=== PATIENT | male | born 1960 | race Hispanic/Latino ===

== ENCOUNTER 2021-02-17 11:27 | Inpatient (IN) | payer OTHER ==
[~2021-02-17] VITALS: Ht 160 cm; Wt 111.1 kg
[2021-02-17 11:28] VITALS: BP 124/72
[2021-02-17 13:13] LABS: BASOPHILS % (AUTO) 0.4 % (0.0-5.0); EOSINOPHILS % (AUTO) 0.6 % (0.0-8.0); HEMATOCRIT 36.7 % (42-54); MEAN CORPUSCULAR HEMOGLOBIN 26.4 pg (27.0-33.0); MEAN CORPUSCULAR HGB CONC 31.3 g/dL (32.0-36.0); MEAN CORPUSCULAR VOLUME 84.2 fL (79-99); MONOCYTES % (AUTO) 5.9 % (3.0-13.0); NEUTROPHILS % (AUTO) 87.1 % (40.0-77.0); PLATELET COUNT (AUTO) 436 K/uL (130-400); RED BLOOD CELL COUNT(AUTO) 4.36 MIL/uL (4.50-6.20)
[2021-02-17 13:31] LABS: CREATININE 0.7 mg/dL (0.5-1.5); POTASSIUM 4.5 mmol/L (3.5-5.1)
[2021-02-17 13:33] LABS: ALBUMIN 2.1 g/dL (3.5-5.0); BILIRUBIN,TOTAL 0.6 mg/dL (0.2-1.0); TOTAL PROTEIN, SERUM 8.7 g/dL (6.0-8.3)
[2021-02-17] MEDS ORDERED: HYDRALAZINE 20MG/ML VIAL IV PRN (15:00)
[2021-02-17] MEDS ORDERED: DIPHENHYDRAMINE HCL 25 MG CAPSULE PO PRN (15:00)
[2021-02-17] MEDS ORDERED: VANCOMYCIN PROTOCOL PER PHARMACY IV SCH (15:00)
[2021-02-17] MEDS ORDERED: COMPOUND IV REFRIGERATED 1 EACH IVSOLN MISC PRN (15:00)
[2021-02-17] MEDS ORDERED: NITROGLYCERIN 0.4 MG SL TAB SL PRN (15:00)
[2021-02-17] MEDS ORDERED: MAG/ALUM/SIMETH 30 ML UDCUP PO PRN (15:00)
[2021-02-17] MEDS ORDERED: ONDANSETRON 4MG INJ IV PRN (15:00)
[2021-02-17] MEDS ORDERED: VANCOMYCIN 2GM/500ML NS IV ONE ×2 (15:00)
[2021-02-17] MEDS ORDERED: ACETAMINOPHEN 325 MG TAB PO PRN (15:00)
[2021-02-17] MEDS ORDERED: ACETAMINOPHEN WITH CODEINE 1 TAB TAB PO PRN (15:00)
[2021-02-17] MEDS ORDERED: ISOS30TA92 PO (15:40)
[2021-02-17] MEDS: CEFEPIME HCL 2 GM VIAL IVP SCH (16:26)
[2021-02-17] MEDS: 0.9%NACL 1000ML 1,000 ML IV SCH (16:50)
[2021-02-17 17:24] VITALS: BP 128/71
[2021-02-17] MEDS: METRONIDAZOLE 500MG/100ML BAG 100 ML IVPB SCH (18:00)
[2021-02-17 18:47] VITALS: BP 135/70
[2021-02-17] MEDS ORDERED: FAMOTIDINE 20MG VIAL IV SCH (21:00)
[2021-02-17] MEDS: MORPHINE 4 MG SYG IV PRN (22:10)
[2021-02-17] MEDS: METOPROLOL TARTRATE 50 MG TAB PO SCH (22:10)
[2021-02-17 22:27] VITALS: BP 122/77
[2021-02-17 22:40] VITALS: BP 153/80
[2021-02-18] VITALS (18 sets, daily range): BP systolic 101–129; BP diastolic 48–82
[2021-02-18] MEDS: METRONIDAZOLE 500MG/100ML BAG 100 ML IVPB SCH ×4 (02:49→18:00)
[2021-02-18] MEDS: CEFEPIME HCL 2 GM VIAL IVP SCH ×3 (02:50→15:55)
[2021-02-18] MEDS: MORPHINE 4 MG SYG IV PRN (04:32)
[2021-02-18] MEDS: 0.9%NACL 1000ML 1,000 ML IV SCH ×4 (04:50→21:30)
[2021-02-18] MEDS: VANCOMYCIN 1.5GM/NS 250ML IV SCH ×6 (06:00→21:30)
[2021-02-18 06:19] LABS: BASOPHILS % (AUTO) 0.6 % (0.0-5.0); EOSINOPHILS % (AUTO) 1.8 % (0.0-8.0); HEMATOCRIT 32.3 % (42-54); LYMPHOCYTES % (AUTO) 6.3 % (21.0-51.0); MEAN CORPUSCULAR HEMOGLOBIN 25.7 pg (27.0-33.0); MEAN CORPUSCULAR HGB CONC 30.3 g/dL (32.0-36.0); MEAN CORPUSCULAR VOLUME 84.6 fL (79-99); MONOCYTES % (AUTO) 7.4 % (3.0-13.0); NEUTROPHILS % (AUTO) 82.7 % (40.0-77.0); PLATELET COUNT (AUTO) 435 K/uL (130-400); RED BLOOD CELL COUNT(AUTO) 3.82 MIL/uL (4.50-6.20); RED CELL DISTRIBUTION WIDTH 15.4 % (11.0-15.5); WHITE BLOOD COUNT (AUTO) 10.8 K/uL (4.8-10.8)
[2021-02-18 06:30] LABS: CREATININE 0.7 mg/dL (0.5-1.5); MAGNESIUM 2.2 mg/dL (1.80-2.40); POTASSIUM 4.2 mmol/L (3.5-5.1)
[2021-02-18] MEDS: METOPROLOL TARTRATE 50 MG TAB PO SCH ×2 (10:07→21:00)
[2021-02-18] MEDS: PANTOPRAZOLE 40 MG/VIAL IVP SCH (10:07)
[2021-02-18] MEDS ORDERED: LIDOCAINE PF 100MG/5ML (2%) SYRINGE 5ML ONE (15:03)
[2021-02-18] MEDS ORDERED: PROPOFOL 10 MG/ML 20ML VIAL IV ONE (15:03)
[2021-02-18] MEDS ORDERED: ONDANSETRON 4MG INJ ONE (15:03)
[2021-02-18] MEDS ORDERED: MIDAZOLAM HCL 1 MG/ML 2ML VIAL ONE (15:04)
[2021-02-18] MEDS ORDERED: ROCURONIUM 10MG/1ML SYR 10 MG/ML ML ONE ×2 (15:04→18:14)
[2021-02-18] MEDS ORDERED: FENTANYL CITRATE PF 50 MCG/1 ML 2ML VIAL ONE (15:04)
[2021-02-18] MEDS ORDERED: VANCOMYCIN 1G VIAL ONE ×3 (15:13→19:25)
[2021-02-18] MEDS ORDERED: CEFAZOLIN SODIUM 1 GM VIAL ONE ×2 (15:13→16:07)
[2021-02-18] MEDS ORDERED: VANCOMYCIN 1G/250ML KIT 500 ML IV ONE (20:16)
[2021-02-18] MEDS ORDERED: NEOSTIGMINE 5MG/5ML SYR IV ONE (20:48)
[2021-02-18] MEDS ORDERED: GLYCOPYRROLATE 1 MG/5 ML SYRINGE ONE (20:48)
[2021-02-18] MEDS ORDERED: NOREPINEPHRINE BITARTRATE 1 MG/1 ML ML IV ONE (21:01)
[2021-02-18] MEDS ORDERED: MEPERIDINE-PF 25 MG/ML SYG ONE (21:01)
[2021-02-18] MEDS ORDERED: NALOXONE HCL 0.4 MG/1 ML ML IVP PRN (21:30)
[2021-02-18] MEDS ORDERED: POTASSIUM CHLORIDE 20MEQ/100ML 100 ML IV PRN (21:30)
[2021-02-18] MEDS ORDERED: KETOROLAC 15MG/ML VIAL (15MG/ML) IV PRN (21:30)
[2021-02-18] MEDS: ACETAMINOPHEN 500 MG TABLET PO SCH (21:30)
[2021-02-18] MEDS ORDERED: LIDOCAINE HCL-MPF 1% 2ML VIAL IV PRN (21:30)
[2021-02-18] MEDS ORDERED: KCL 20 MEQ ERTAB PO PRN (21:30)
[2021-02-18] MEDS ORDERED: OXYCODONE HCL 5 MG TAB PO PRN (21:30)
[2021-02-18] MEDS ORDERED: POTASSIUM CHLORIDE 10% ELIXIR 20 MEQ/15 ML UDCUP PO PRN (21:30)
[2021-02-18] MEDS ORDERED: DIPHENHYDRAMINE HCL 25 MG CAPSULE PO PRN (21:30)
[2021-02-18] MEDS ORDERED: DiphenhydrAMINE HCL 50 MG/ML VIAL IVP PRN (21:30)
[2021-02-18] MEDS ORDERED: TRAMADOL HCL 50 MG TABLET PO PRN (21:30)
[2021-02-18] MEDS ORDERED: HYDROMORPHONE PCA 10 MG/50 ML 50 ML IV PRN (21:30)
[2021-02-18] MEDS ORDERED: HYDROMORPHONE 1 MG INJ ONE ×2 (21:41→22:07)
[2021-02-18] MEDS ORDERED: KETOROLAC 30MG VIAL (30MG/ML) ONE (21:51)
[2021-02-19] VITALS (11 sets, daily range): BP systolic 95–146; BP diastolic 52–74
[2021-02-19] MEDS: CEFEPIME HCL 2 GM VIAL IVP SCH ×2 (03:41→14:11)
[2021-02-19] MEDS: METRONIDAZOLE 500MG/100ML BAG 100 ML IVPB SCH ×3 (03:41→17:25)
[2021-02-19] MEDS: ACETAMINOPHEN 500 MG TABLET PO SCH ×3 (04:38→21:46)
[2021-02-19 05:15] LABS: MEAN CORPUSCULAR HEMOGLOBIN 26.1 pg (27.0-33.0); MEAN CORPUSCULAR VOLUME 87.1 fL (79-99); RED BLOOD CELL COUNT(AUTO) 3.33 MIL/uL (4.50-6.20); RED CELL DISTRIBUTION WIDTH 15.4 % (11.0-15.5); WHITE BLOOD COUNT (AUTO) 13.6 K/uL (4.8-10.8)
[2021-02-19 05:29] LABS: CREATININE 0.8 mg/dL (0.5-1.5); POTASSIUM 5.4 mmol/L (3.5-5.1)
[2021-02-19] MEDS: 0.9%NACL 1000ML 1,000 ML IV SCH ×2 (07:00→20:20)
[2021-02-19] MEDS ORDERED: KAYEXALATE 15GM/60ML PO ONE (08:30)
[2021-02-19] MEDS ORDERED: CALCIUM GLUC 1GM VIAL IV SCH (08:30)
[2021-02-19] MEDS ORDERED: CELECOXIB 200 MG CAP PO SCH (09:00)
[2021-02-19] MEDS ORDERED: ENOXAPARIN SODIUM 40 MG/0.4 ML SYRINGE SQ SCH (09:00)
[2021-02-19] MEDS ORDERED: CALCIUM GLUC 1GM VIAL 1 GM in 0.9%NACL 100ML 100 ML IV ONE (09:00)
[2021-02-19] MEDS ORDERED: KAYEXALATE 15GM/60ML ONE (09:55)
[2021-02-19] MEDS: METOPROLOL TARTRATE 50 MG TAB PO SCH ×2 (09:58→21:44)
[2021-02-19] MEDS: TAMSULOSIN HCL 0.4 MG CAP.ER.24H PO SCH (09:58)
[2021-02-19] MEDS: PREGABALIN 25 MG CAP PO SCH ×2 (09:58→21:44)
[2021-02-19] MEDS: PANTOPRAZOLE 40 MG/VIAL IVP SCH (09:59)
[2021-02-19 14:01] LABS: POTASSIUM 4.5 mmol/L (3.5-5.1)
[2021-02-19] MEDS: VANCOMYCIN 1.25GM/NS 250ML IVPB SCH ×2 (21:46)
[2021-02-19] MEDS: GUAIFENESIN-DM 200/20 MG 10 ML PO PRN (21:46)
[2021-02-20] MEDS: 0.9%NACL 1000ML 1,000 ML IV SCH (00:36)
[2021-02-20] MEDS: METRONIDAZOLE 500MG/100ML BAG 100 ML IVPB SCH ×3 (03:41→18:02)
[2021-02-20] MEDS: CEFEPIME HCL 2 GM VIAL IVP SCH ×2 (03:41→18:02)
[2021-02-20 04:04] VITALS: BP 112/58
[2021-02-20] MEDS: ACETAMINOPHEN 500 MG TABLET PO SCH ×3 (05:33→20:38)
[2021-02-20 06:21] LABS: HEMATOCRIT 23.7 % (42-54); MEAN CORPUSCULAR HEMOGLOBIN 25.6 pg (27.0-33.0); MEAN CORPUSCULAR HGB CONC 29.5 g/dL (32.0-36.0); MEAN CORPUSCULAR VOLUME 86.8 fL (79-99); RED BLOOD CELL COUNT(AUTO) 2.73 MIL/uL (4.50-6.20); RED CELL DISTRIBUTION WIDTH 15.5 % (11.0-15.5); WHITE BLOOD COUNT (AUTO) 8.3 K/uL (4.8-10.8)
[2021-02-20 06:49] LABS: CREATININE 0.7 mg/dL (0.5-1.5); POTASSIUM 3.8 mmol/L (3.5-5.1)
[2021-02-20 07:30] VITALS: BP 130/61
[2021-02-20] MEDS: VANCOMYCIN 1.25GM/NS 250ML IVPB SCH ×4 (10:40→20:39)
[2021-02-20] MEDS: PANTOPRAZOLE 40 MG/VIAL IVP SCH (10:40)
[2021-02-20] MEDS: TAMSULOSIN HCL 0.4 MG CAP.ER.24H PO SCH (10:41)
[2021-02-20] MEDS: PREGABALIN 25 MG CAP PO SCH ×2 (10:41→20:39)
[2021-02-20] MEDS: METOPROLOL TARTRATE 50 MG TAB PO SCH ×2 (10:41→20:39)
[2021-02-20] MEDS: CALCIUM CARB 500MG PO PRN (10:47)
[2021-02-20] MEDS: FERROUS FUMARATE 324 MG TABLET PO PRN (10:48)
[2021-02-20 11:00] VITALS: BP 120/72
[2021-02-20 16:00] VITALS: BP 114/70
[2021-02-20 20:00] VITALS: BP 109/70
[2021-02-20] MEDS ORDERED: FUROSEMIDE 20MG VIAL IV ONE (20:30)
[2021-02-20] MEDS: ENOXAPARIN SODIUM 40 MG/0.4 ML SYRINGE SQ SCH (22:14)
[2021-02-20] MEDS: GUAIFENESIN-DM 200/20 MG 10 ML PO PRN (23:09)
[2021-02-21 00:02] VITALS: BP 93/51
[2021-02-21] MEDS: METRONIDAZOLE 500MG/100ML BAG 100 ML IVPB SCH ×3 (01:38→18:23)
[2021-02-21] MEDS: CEFEPIME HCL 2 GM VIAL IVP SCH ×2 (03:11→15:05)
[2021-02-21 04:00] VITALS: BP 110/62
[2021-02-21] MEDS: GUAIFENESIN-DM 200/20 MG 10 ML PO PRN (04:51)
[2021-02-21] MEDS: ACETAMINOPHEN 500 MG TABLET PO SCH ×3 (04:52→20:56)
[2021-02-21 05:02] LABS: MEAN CORPUSCULAR HEMOGLOBIN 26.3 pg (27.0-33.0); MEAN CORPUSCULAR VOLUME 87.7 fL (79-99); RED BLOOD CELL COUNT(AUTO) 2.85 MIL/uL (4.50-6.20); RED CELL DISTRIBUTION WIDTH 15.1 % (11.0-15.5); WHITE BLOOD COUNT (AUTO) 7.1 K/uL (4.8-10.8)
[2021-02-21 05:23] LABS: CREATININE 0.6 mg/dL (0.5-1.5); POTASSIUM 3.6 mmol/L (3.5-5.1)
[2021-02-21 07:48] VITALS: BP 122/73
[2021-02-21] MEDS: METOPROLOL TARTRATE 50 MG TAB PO SCH ×2 (09:35→20:57)
[2021-02-21] MEDS: TAMSULOSIN HCL 0.4 MG CAP.ER.24H PO SCH (09:35)
[2021-02-21] MEDS: PANTOPRAZOLE 40 MG/VIAL IVP SCH (09:35)
[2021-02-21] MEDS: PREGABALIN 25 MG CAP PO SCH ×2 (09:36→20:57)
[2021-02-21] MEDS: ENOXAPARIN SODIUM 40 MG/0.4 ML SYRINGE SQ SCH (09:39)
[2021-02-21] MEDS: FERROUS FUMARATE 324 MG TABLET PO PRN (09:42)
[2021-02-21] MEDS: CALCIUM CARB 500MG PO PRN (09:43)
[2021-02-21] MEDS: VANCOMYCIN 1.5GM/NS 250ML IV SCH ×4 (11:48→21:21)
[2021-02-21 11:51] VITALS: BP 118/64
[2021-02-21] MEDS: OXYCODONE HCL 5 MG TAB PO PRN (11:54)
[2021-02-21 15:45] VITALS: BP 106/57
[2021-02-21 20:00] VITALS: BP 132/63
[2021-02-21] MEDS ORDERED: 0.9% NACL 250ML 250 ML ONE (20:50)
[2021-02-22 00:12] VITALS: BP 126/68
[2021-02-22] MEDS: METRONIDAZOLE 500MG/100ML BAG 100 ML IVPB SCH (02:00)
[2021-02-22] MEDS: CEFEPIME HCL 2 GM VIAL IVP SCH (03:02)
[2021-02-22 04:00] VITALS: BP 125/73
[2021-02-22] MEDS: MORPHINE 4 MG SYG IV PRN (04:39)
[2021-02-22 06:21] LABS: BASOPHILS % (AUTO) 1.4 % (0.0-5.0); HEMATOCRIT 28.6 % (42-54); MEAN CORPUSCULAR HEMOGLOBIN 26.3 pg (27.0-33.0); MEAN CORPUSCULAR HGB CONC 29.7 g/dL (32.0-36.0); MEAN CORPUSCULAR VOLUME 88.5 fL (79-99); MONOCYTES % (AUTO) 7.3 % (3.0-13.0); NEUTROPHILS % (AUTO) 70.3 % (40.0-77.0); NUCLEATED RED BLOOD CELLS 0.3 % (0.0-0.19); PLATELET COUNT (AUTO) 357 K/uL (130-400); RED BLOOD CELL COUNT(AUTO) 3.23 MIL/uL (4.50-6.20); RED CELL DISTRIBUTION WIDTH 15.3 % (11.0-15.5); WHITE BLOOD COUNT (AUTO) 7.2 K/uL (4.8-10.8)
[2021-02-22 08:00] VITALS: BP 151/76
[2021-02-22] MEDS: OXYCODONE HCL 5 MG TAB PO PRN ×2 (09:46→17:26)
[2021-02-22] MEDS: CEFAZOLIN SODIUM 1 GM VIAL IVP SCH ×3 (09:47→23:51)
[2021-02-22] MEDS: METOPROLOL TARTRATE 50 MG TAB PO SCH ×2 (09:48→20:09)
[2021-02-22] MEDS: TAMSULOSIN HCL 0.4 MG CAP.ER.24H PO SCH (09:48)
[2021-02-22] MEDS: PREGABALIN 25 MG CAP PO SCH ×2 (09:48→20:09)
[2021-02-22] MEDS: PANTOPRAZOLE 40 MG/VIAL IVP SCH (09:48)
[2021-02-22] MEDS: ENOXAPARIN SODIUM 40 MG/0.4 ML SYRINGE SQ SCH (09:49)
[2021-02-22 11:44] VITALS: BP 140/80
[2021-02-22] MEDS: ACETAMINOPHEN 500 MG TABLET PO SCH ×2 (13:30→20:12)
[2021-02-22 16:00] VITALS: BP 132/80
[2021-02-22] MEDS: FERROUS FUMARATE 324 MG TABLET PO PRN (17:15)
[2021-02-22] MEDS: CALCIUM CARB 500MG PO PRN (17:17)
[2021-02-22] MEDS: GUAIFENESIN-DM 200/20 MG 10 ML PO PRN (17:18)
[2021-02-22] MEDS: LOSARTAN 50 MG TABLET PO SCH (17:24)
[2021-02-22 20:00] VITALS: BP 135/69
[2021-02-23] VITALS (24 sets, daily range): BP systolic 107–135; BP diastolic 55–82
[2021-02-23] MEDS: ACETAMINOPHEN 500 MG TABLET PO SCH ×3 (05:30→20:28)
[2021-02-23 08:44] LABS: EOSINOPHILS % (AUTO) 3.3 % (0.0-8.0); HEMATOCRIT 28.9 % (42-54); LYMPHOCYTES % (AUTO) 10.3 % (21.0-51.0); MEAN CORPUSCULAR HGB CONC 30.1 g/dL (32.0-36.0); MEAN CORPUSCULAR VOLUME 89.8 fL (79-99); MONOCYTES % (AUTO) 8.1 % (3.0-13.0); NEUTROPHILS % (AUTO) 70.2 % (40.0-77.0); PLATELET COUNT (AUTO) 354 K/uL (130-400); RED BLOOD CELL COUNT(AUTO) 3.22 MIL/uL (4.50-6.20); RED CELL DISTRIBUTION WIDTH 15.6 % (11.0-15.5)
[2021-02-23] MEDS: LOSARTAN 50 MG TABLET PO SCH (09:00)
[2021-02-23] MEDS: PREGABALIN 25 MG CAP PO SCH ×2 (09:00→20:28)
[2021-02-23] MEDS: TAMSULOSIN HCL 0.4 MG CAP.ER.24H PO SCH (09:00)
[2021-02-23] MEDS: METOPROLOL TARTRATE 50 MG TAB PO SCH ×2 (10:01→20:28)
[2021-02-23] MEDS: CEFAZOLIN SODIUM 1 GM VIAL IVP SCH ×2 (10:01→17:22)
[2021-02-23] MEDS: PANTOPRAZOLE 40 MG/VIAL IVP SCH (10:01)
[2021-02-23] MEDS ORDERED: SUCCINYLCHOLINE CHLORIDE 20 MG/ML 10 ML VIAL ONE (11:16)
[2021-02-23] MEDS ORDERED: LIDOCAINE HCL-MPF 1% 5ML AMP IJ ONE (11:16)
[2021-02-23] MEDS ORDERED: ROCURONIUM 10MG/1ML SYR 10 MG/ML ML ONE (11:17)
[2021-02-23] MEDS ORDERED: FENTANYL CITRATE PF 50 MCG/1 ML 2ML VIAL ONE (11:17)
[2021-02-23] MEDS ORDERED: PROPOFOL 10 MG/ML 20ML VIAL IV ONE (11:17)
[2021-02-23] MEDS ORDERED: MIDAZOLAM HCL 1 MG/ML 2ML VIAL ONE (11:17)
[2021-02-23] MEDS ORDERED: CEFAZOLIN SODIUM 1 GM VIAL ONE (12:07)
[2021-02-23] MEDS: VANCOMYCIN 1G VIAL ONE ×2 (12:30→12:45)
[2021-02-23] MEDS ORDERED: VANCOMYCIN 1G VIAL ONE (13:17)
[2021-02-23] MEDS ORDERED: ALBUMIN (HUMAN) 5% 250 ML IV ONE (13:18)
[2021-02-23] MEDS ORDERED: GLYCOPYRROLATE 1 MG/5 ML SYRINGE ONE (13:57)
[2021-02-23] MEDS ORDERED: NEOSTIGMINE 5MG/5ML SYR IV ONE (13:58)
[2021-02-23] MEDS ORDERED: POTASSIUM CHLORIDE 10% ELIXIR 20 MEQ/15 ML UDCUP PO PRN (14:00)
[2021-02-23] MEDS ORDERED: FERROUS FUMARATE 324 MG TABLET PO PRN (14:00)
[2021-02-23] MEDS ORDERED: KCL 20 MEQ ERTAB PO PRN (14:00)
[2021-02-23] MEDS ORDERED: LIDOCAINE HCL-MPF 1% 2ML VIAL IV PRN (14:00)
[2021-02-23] MEDS ORDERED: POTASSIUM CHLORIDE 20MEQ/100ML 100 ML IV PRN (14:00)
[2021-02-23] MEDS: 0.9%NACL 1000ML 1,000 ML IV SCH ×2 (14:00→15:52)
[2021-02-23] MEDS ORDERED: MEPERIDINE-PF 25 MG/ML SYG ONE ×2 (14:28→14:38)
[2021-02-23] MEDS: OXYCODONE HCL 5 MG TAB PO PRN (15:46)
[2021-02-23] MEDS ORDERED: VANCOMYCIN 1.5GM/NS 250ML IV SCH ×2 (21:30)
[2021-02-24] VITALS: BP 96/60
[2021-02-24] MEDS: 0.9%NACL 1000ML 1,000 ML IV SCH ×2 (00:09→09:05)
[2021-02-24] MEDS: CEFAZOLIN SODIUM 1 GM VIAL IVP SCH ×3 (01:08→17:31)
[2021-02-24 04:00] VITALS: BP 124/74
[2021-02-24] MEDS: ACETAMINOPHEN 500 MG TABLET PO SCH ×3 (05:24→20:06)
[2021-02-24 05:53] LABS: BASOPHILS % (AUTO) 0.8 % (0.0-5.0); EOSINOPHILS % (AUTO) 1.8 % (0.0-8.0); LYMPHOCYTES % (AUTO) 8.5 % (21.0-51.0); MEAN CORPUSCULAR HEMOGLOBIN 27.3 pg (27.0-33.0); MEAN CORPUSCULAR HGB CONC 30.4 g/dL (32.0-36.0); MONOCYTES % (AUTO) 9.8 % (3.0-13.0); NEUTROPHILS % (AUTO) 74.1 % (40.0-77.0); PLATELET COUNT (AUTO) 377 K/uL (130-400); RED CELL DISTRIBUTION WIDTH 15.9 % (11.0-15.5); WHITE BLOOD COUNT (AUTO) 9.2 K/uL (4.8-10.8)
[2021-02-24 06:18] LABS: ALBUMIN 1.8 g/dL (3.5-5.0); BILIRUBIN,TOTAL 0.3 mg/dL (0.2-1.0); CREATININE 0.5 mg/dL (0.5-1.5); CRP QUANTITATIVE 69.3 mg/L (0.00-9.0); POTASSIUM 4.5 mmol/L (3.5-5.1); TOTAL PROTEIN, SERUM 6.7 g/dL (6.0-8.3)
[2021-02-24 08:00] VITALS: BP 116/64
[2021-02-24] MEDS: METOPROLOL TARTRATE 50 MG TAB PO SCH ×2 (09:04→20:05)
[2021-02-24] MEDS: TAMSULOSIN HCL 0.4 MG CAP.ER.24H PO SCH (09:04)
[2021-02-24] MEDS: PANTOPRAZOLE 40 MG/VIAL IVP SCH (09:04)
[2021-02-24] MEDS: LOSARTAN 50 MG TABLET PO SCH (09:04)
[2021-02-24] MEDS: ENOXAPARIN SODIUM 40 MG/0.4 ML SYRINGE SQ SCH (09:05)
[2021-02-24 12:00] VITALS: BP 121/72
[2021-02-24 16:00] VITALS: BP 103/60
[2021-02-24 20:00] VITALS: BP 123/67
[2021-02-24] MEDS: TEMAZEPAM 15 MG CAPSULE PO PRN (20:06)
[2021-02-24] MEDS ORDERED: HYDROCODONE/ACETAMINOPHEN 7.5/325 MG TAB ONE (21:54)
[2021-02-25] VITALS (7 sets, daily range): BP systolic 94–133; BP diastolic 58–69
[2021-02-25] MEDS: CEFAZOLIN SODIUM 1 GM VIAL IVP SCH ×3 (00:53→17:25)
[2021-02-25] MEDS: ACETAMINOPHEN 500 MG TABLET PO SCH ×3 (05:30→21:30)
[2021-02-25 05:41] LABS: EOSINOPHILS % (AUTO) 3.7 % (0.0-8.0); HEMATOCRIT 25.3 % (42-54); LYMPHOCYTES % (AUTO) 13.8 % (21.0-51.0); MEAN CORPUSCULAR HEMOGLOBIN 26.6 pg (27.0-33.0); MEAN CORPUSCULAR HGB CONC 29.6 g/dL (32.0-36.0); MEAN CORPUSCULAR VOLUME 89.7 fL (79-99); MONOCYTES % (AUTO) 11.4 % (3.0-13.0); NEUTROPHILS % (AUTO) 64.7 % (40.0-77.0); PLATELET COUNT (AUTO) 320 K/uL (130-400); RED BLOOD CELL COUNT(AUTO) 2.82 MIL/uL (4.50-6.20); RED CELL DISTRIBUTION WIDTH 16.2 % (11.0-15.5)
[2021-02-25 06:16] LABS: ALBUMIN 1.8 g/dL (3.5-5.0); BILIRUBIN,TOTAL 0.2 mg/dL (0.2-1.0); CREATININE 0.6 mg/dL (0.5-1.5); CRP QUANTITATIVE 94.9 mg/L (0.00-9.0); POTASSIUM 4.2 mmol/L (3.5-5.1); TOTAL PROTEIN, SERUM 6.6 g/dL (6.0-8.3)
[2021-02-25] MEDS: TAMSULOSIN HCL 0.4 MG CAP.ER.24H PO SCH (09:41)
[2021-02-25] MEDS: METOPROLOL TARTRATE 50 MG TAB PO SCH ×2 (09:41→20:47)
[2021-02-25] MEDS: LOSARTAN 50 MG TABLET PO SCH (09:41)
[2021-02-25] MEDS: ENOXAPARIN SODIUM 40 MG/0.4 ML SYRINGE SQ SCH (09:41)
[2021-02-25] MEDS: PANTOPRAZOLE 40 MG/VIAL IVP SCH (09:41)
[2021-02-25] MEDS ORDERED: FERR324T10 PO (19:53)
[2021-02-25] MEDS ORDERED: AEC81 PO (19:53)
[2021-02-25] MEDS ORDERED: HYDR-4064 PO (19:53)
[2021-02-25] MEDS: HYDROCODONE/ACETAMINOPHEN 7.5/325 MG TAB PO PRN (20:47)
[2021-02-25] MEDS: TEMAZEPAM 15 MG CAPSULE PO PRN (20:48)
[2021-02-25] MEDS: OXYCODONE HCL 5 MG TAB PO PRN (22:18)
[2021-02-26] MEDS: CEFAZOLIN SODIUM 1 GM VIAL IVP SCH ×3 (00:10→17:08)
[2021-02-26 04:00] VITALS: BP 136/70
[2021-02-26 04:57] LABS: BASOPHILS % (AUTO) 0.7 % (0.0-5.0); EOSINOPHILS % (AUTO) 3.4 % (0.0-8.0); HEMATOCRIT 24.5 % (42-54); LYMPHOCYTES % (AUTO) 12.8 % (21.0-51.0); MEAN CORPUSCULAR HEMOGLOBIN 26.9 pg (27.0-33.0); MEAN CORPUSCULAR HGB CONC 30.2 g/dL (32.0-36.0); MEAN CORPUSCULAR VOLUME 89.1 fL (79-99); NEUTROPHILS % (AUTO) 66.5 % (40.0-77.0); PLATELET COUNT (AUTO) 359 K/uL (130-400); RED BLOOD CELL COUNT(AUTO) 2.75 MIL/uL (4.50-6.20); RED CELL DISTRIBUTION WIDTH 16.1 % (11.0-15.5); WHITE BLOOD COUNT (AUTO) 6.8 K/uL (4.8-10.8)
[2021-02-26 05:15] LABS: ALBUMIN 1.8 g/dL (3.5-5.0); BILIRUBIN,TOTAL 0.2 mg/dL (0.2-1.0); CREATININE 0.6 mg/dL (0.5-1.5); CRP QUANTITATIVE 65.6 mg/L (0.00-9.0); POTASSIUM 4.2 mmol/L (3.5-5.1); TOTAL PROTEIN, SERUM 6.7 g/dL (6.0-8.3)
[2021-02-26] MEDS: ACETAMINOPHEN 500 MG TABLET PO SCH ×3 (05:18→21:33)
[2021-02-26 07:58] VITALS: BP 119/71
[2021-02-26] MEDS: LOSARTAN 50 MG TABLET PO SCH (08:41)
[2021-02-26] MEDS: TAMSULOSIN HCL 0.4 MG CAP.ER.24H PO SCH (08:41)
[2021-02-26] MEDS: METOPROLOL TARTRATE 50 MG TAB PO SCH ×2 (08:41→21:31)
[2021-02-26] MEDS: PANTOPRAZOLE 40 MG/VIAL IVP SCH (08:41)
[2021-02-26] MEDS: ENOXAPARIN SODIUM 40 MG/0.4 ML SYRINGE SQ SCH (08:42)
[2021-02-26 11:29] VITALS: BP 120/71
[2021-02-26] MEDS ORDERED: IRON SUCROSE COMPLEX 500 MG in 0.9% NACL 250ML 250 ML IV SCH (12:00)
[2021-02-26] MEDS ORDERED: EPOETIN ALFA-EPBX (NON-ESRD) 10,000 UNIT/ML VIAL SQ SCH (12:00)
[2021-02-26 12:37] LABS: % IRON SATURATION 12.7 % (30-44)
[2021-02-26 15:58] VITALS: BP 129/72
[2021-02-26 19:47] VITALS: BP 136/75
[2021-02-26] MEDS: TEMAZEPAM 15 MG CAPSULE PO PRN (22:18)
[2021-02-26 23:26] VITALS: BP 138/72
[2021-02-27] MEDS: HYDROMORPHONE PCA 10 MG/50 ML 50 ML IV PRN ×3 (00:06→19:43)
[2021-02-27] MEDS: CEFAZOLIN SODIUM 1 GM VIAL IVP SCH ×2 (01:03→10:00)
[2021-02-27] MEDS: KETOROLAC 15MG/ML VIAL (15MG/ML) IM PRN ×3 (01:19→19:50)
[2021-02-27 03:32] VITALS: BP 106/65
[2021-02-27 04:33] LABS: EOSINOPHILS % (AUTO) 3.8 % (0.0-8.0); LYMPHOCYTES % (AUTO) 13.5 % (21.0-51.0); MEAN CORPUSCULAR HEMOGLOBIN 26.7 pg (27.0-33.0); MONOCYTES % (AUTO) 7.8 % (3.0-13.0); NEUTROPHILS % (AUTO) 69.1 % (40.0-77.0); PLATELET COUNT (AUTO) 337 K/uL (130-400); RED BLOOD CELL COUNT(AUTO) 2.92 MIL/uL (4.50-6.20); RED CELL DISTRIBUTION WIDTH 16.2 % (11.0-15.5)
[2021-02-27 04:48] LABS: ALBUMIN 1.9 g/dL (3.5-5.0); BILIRUBIN,TOTAL 0.1 mg/dL (0.2-1.0); CREATININE 0.6 mg/dL (0.5-1.5); CRP QUANTITATIVE 51.6 mg/L (0.00-9.0); POTASSIUM 4.3 mmol/L (3.5-5.1); TOTAL PROTEIN, SERUM 7.1 g/dL (6.0-8.3)
[2021-02-27] MEDS: ACETAMINOPHEN 500 MG TABLET PO SCH ×3 (06:28→19:50)
[2021-02-27 08:00] VITALS: BP 143/80
[2021-02-27] MEDS: PANTOPRAZOLE 40 MG/VIAL IVP SCH (10:00)
[2021-02-27] MEDS: METOPROLOL TARTRATE 50 MG TAB PO SCH ×2 (10:01→19:50)
[2021-02-27] MEDS: ENOXAPARIN SODIUM 40 MG/0.4 ML SYRINGE SQ SCH (10:01)
[2021-02-27] MEDS: LOSARTAN 50 MG TABLET PO SCH (10:01)
[2021-02-27] MEDS: TAMSULOSIN HCL 0.4 MG CAP.ER.24H PO SCH (10:01)
[2021-02-27] MEDS: HYDROCODONE/ACETAMINOPHEN 7.5/325 MG TAB PO PRN (11:30)
[2021-02-27 12:02] LABS: INR 1.07 (0.85-1.15); PROTHROMBIN TIME 11.6 SEC (9.6-11.6)
[2021-02-27 12:03] LABS: PARTIAL THROMBOPLASTIN TIME 30.2 SEC (26.3-35.5)
[2021-02-27] MEDS: CEFTRIAXONE 2GM VIAL IVP SCH (12:49)
[2021-02-27 16:35] VITALS: BP 149/74
[2021-02-27 19:00] VITALS: BP 139/69
[2021-02-27] MEDS: FERROUS FUMARATE 324 MG TABLET PO PRN (20:55)
[2021-02-27] MEDS: LACTULOSE 20 GM/30 ML UDCUP PO PRN (20:55)
[2021-02-27 23:53] VITALS: BP 138/79
[2021-02-28] MEDS: OXYCODONE HCL 5 MG TAB PO PRN ×3 (00:37→23:27)
[2021-02-28] MEDS: TEMAZEPAM 15 MG CAPSULE PO PRN ×2 (00:37→23:28)
[2021-02-28 03:52] VITALS: BP 157/88
[2021-02-28] MEDS: ACETAMINOPHEN 500 MG TABLET PO SCH ×3 (04:52→20:08)
[2021-02-28 05:30] LABS: BASOPHILS % (AUTO) 1.2 % (0.0-5.0); HEMATOCRIT 27.4 % (42-54); LYMPHOCYTES % (AUTO) 15.9 % (21.0-51.0); MEAN CORPUSCULAR HGB CONC 29.9 g/dL (32.0-36.0); MEAN CORPUSCULAR VOLUME 90.1 fL (79-99); MONOCYTES % (AUTO) 7.8 % (3.0-13.0); NEUTROPHILS % (AUTO) 66.5 % (40.0-77.0); PLATELET COUNT (AUTO) 375 K/uL (130-400); RED BLOOD CELL COUNT(AUTO) 3.04 MIL/uL (4.50-6.20); RED CELL DISTRIBUTION WIDTH 16.8 % (11.0-15.5); WHITE BLOOD COUNT (AUTO) 6.6 K/uL (4.8-10.8)
[2021-02-28 05:40] LABS: CREATININE 0.7 mg/dL (0.5-1.5); POTASSIUM 4.5 mmol/L (3.5-5.1)
[2021-02-28 05:43] LABS: INR 1.05 (0.85-1.15); PROTHROMBIN TIME 11.4 SEC (9.6-11.6)
[2021-02-28 07:56] VITALS: BP 148/84
[2021-02-28] MEDS: CEFTRIAXONE 2GM VIAL IVP SCH (10:37)
[2021-02-28] MEDS: ENOXAPARIN SODIUM 40 MG/0.4 ML SYRINGE SQ SCH (10:37)
[2021-02-28] MEDS: PANTOPRAZOLE 40 MG/VIAL IVP SCH (10:37)
[2021-02-28] MEDS: METOPROLOL TARTRATE 50 MG TAB PO SCH ×2 (10:40→20:07)
[2021-02-28] MEDS: LOSARTAN 50 MG TABLET PO SCH (10:40)
[2021-02-28] MEDS: TAMSULOSIN HCL 0.4 MG CAP.ER.24H PO SCH (10:40)
[2021-02-28 12:00] VITALS: BP 158/87
[2021-02-28 16:00] VITALS: BP 144/81
[2021-02-28 19:43] VITALS: BP 169/88
[2021-02-28] MEDS: FERROUS FUMARATE 324 MG TABLET PO PRN (20:07)
[2021-02-28] MEDS: KETOROLAC 15MG/ML VIAL (15MG/ML) IM PRN (20:08)
[2021-02-28 23:53] VITALS: BP 160/76
[2021-03-01] MEDS: OXYCODONE HCL 5 MG TAB PO PRN ×2 (01:38→20:17)
[2021-03-01 03:58] VITALS: BP 154/99
[2021-03-01] MEDS: ACETAMINOPHEN 500 MG TABLET PO SCH ×3 (05:02→21:30)
[2021-03-01 05:51] LABS: BASOPHILS % (AUTO) 1.2 % (0.0-5.0); EOSINOPHILS % (AUTO) 3.9 % (0.0-8.0); HEMATOCRIT 27.1 % (42-54); LYMPHOCYTES % (AUTO) 16.3 % (21.0-51.0); MEAN CORPUSCULAR HEMOGLOBIN 26.8 pg (27.0-33.0); MEAN CORPUSCULAR HGB CONC 30.3 g/dL (32.0-36.0); MEAN CORPUSCULAR VOLUME 88.6 fL (79-99); MONOCYTES % (AUTO) 8.4 % (3.0-13.0); NEUTROPHILS % (AUTO) 66.7 % (40.0-77.0); PLATELET COUNT (AUTO) 408 K/uL (130-400); RED BLOOD CELL COUNT(AUTO) 3.06 MIL/uL (4.50-6.20); RED CELL DISTRIBUTION WIDTH 17.4 % (11.0-15.5); WHITE BLOOD COUNT (AUTO) 7.4 K/uL (4.8-10.8)
[2021-03-01 06:16] LABS: ALBUMIN 2.1 g/dL (3.5-5.0); BILIRUBIN,TOTAL 0.2 mg/dL (0.2-1.0); CREATININE 0.6 mg/dL (0.5-1.5); POTASSIUM 4.5 mmol/L (3.5-5.1); TOTAL PROTEIN, SERUM 7.5 g/dL (6.0-8.3)
[2021-03-01 08:00] VITALS: BP 149/85
[2021-03-01] MEDS: PANTOPRAZOLE 40 MG/VIAL IVP SCH (10:20)
[2021-03-01] MEDS: TAMSULOSIN HCL 0.4 MG CAP.ER.24H PO SCH (10:20)
[2021-03-01] MEDS: CEFTRIAXONE 2GM VIAL IVP SCH (10:20)
[2021-03-01] MEDS: METOPROLOL TARTRATE 50 MG TAB PO SCH ×2 (10:20→20:17)
[2021-03-01] MEDS: ENOXAPARIN SODIUM 40 MG/0.4 ML SYRINGE SQ SCH (10:21)
[2021-03-01] MEDS: LOSARTAN 50 MG TABLET PO SCH (10:22)
[2021-03-01 11:36] VITALS: BP 131/85
[2021-03-01 16:00] VITALS: BP 127/60
[2021-03-01 19:56] VITALS: BP 152/76
[2021-03-01 23:15] VITALS: BP 151/71
[2021-03-02] MEDS: OXYCODONE HCL 5 MG TAB PO PRN ×2 (01:10→09:06)
[2021-03-02 03:53] LABS: BASOPHILS % (AUTO) 1.1 % (0.0-5.0); EOSINOPHILS % (AUTO) 2.7 % (0.0-8.0); LYMPHOCYTES % (AUTO) 12.2 % (21.0-51.0); MEAN CORPUSCULAR HEMOGLOBIN 27.2 pg (27.0-33.0); MEAN CORPUSCULAR VOLUME 90.6 fL (79-99); MONOCYTES % (AUTO) 7.1 % (3.0-13.0); NEUTROPHILS % (AUTO) 74.5 % (40.0-77.0); PLATELET COUNT (AUTO) 380 K/uL (130-400); RED BLOOD CELL COUNT(AUTO) 3.09 MIL/uL (4.50-6.20); RED CELL DISTRIBUTION WIDTH 18.3 % (11.0-15.5); WHITE BLOOD COUNT (AUTO) 8.8 K/uL (4.8-10.8)
[2021-03-02 03:58] VITALS: BP 139/70
[2021-03-02 04:05] LABS: INR 1.09 (0.85-1.15); PROTHROMBIN TIME 11.8 SEC (9.6-11.6)
[2021-03-02 04:06] LABS: PARTIAL THROMBOPLASTIN TIME 28.4 SEC (26.3-35.5)
[2021-03-02 04:07] LABS: ALBUMIN 2.2 g/dL (3.5-5.0); BILIRUBIN,TOTAL 0.2 mg/dL (0.2-1.0); CREATININE 0.6 mg/dL (0.5-1.5); POTASSIUM 4.2 mmol/L (3.5-5.1); TOTAL PROTEIN, SERUM 7.8 g/dL (6.0-8.3)
[2021-03-02] MEDS: ACETAMINOPHEN 500 MG TABLET PO SCH ×2 (05:16→13:49)
[2021-03-02] MEDS: FERROUS FUMARATE 324 MG TABLET PO PRN (06:23)
[2021-03-02 08:00] VITALS: BP 150/81
[2021-03-02] MEDS: KETOROLAC 15MG/ML VIAL (15MG/ML) IM PRN (08:14)
[2021-03-02] MEDS: ENOXAPARIN SODIUM 40 MG/0.4 ML SYRINGE SQ SCH (08:16)
[2021-03-02] MEDS: TAMSULOSIN HCL 0.4 MG CAP.ER.24H PO SCH (08:16)
[2021-03-02] MEDS: PANTOPRAZOLE 40 MG/VIAL IVP SCH (08:16)
[2021-03-02] MEDS: METOPROLOL TARTRATE 50 MG TAB PO SCH (08:16)
[2021-03-02] MEDS: LOSARTAN 50 MG TABLET PO SCH (08:16)
[2021-03-02] MEDS: LACTULOSE 20 GM/30 ML UDCUP PO PRN (09:07)
[2021-03-02] MEDS: CEFTRIAXONE 2GM VIAL IVP SCH (10:41)
[2021-03-02 16:00] VITALS: BP 130/82
== END 2021-03-02 19:30 | disposition home health service (06) | DRG 466 ==
LOC: EDH 11:27 → EDHIP 11:28 → 3BH 22:40
PROVIDERS: ADMIT Internal Medicine; ATTEND Internal Medicine
PROC: 30233N1 Transfusion of Nonautologous Red Blood Cells into Peripheral Vein, Percutaneous Approach (ICD-10-PCS; 2021-02-20)
PROC: 0SRC0EZ Replacement of Right Knee Joint with Articulating Spacer, Open Approach (ICD-10-PCS; 2021-02-23)
PROC: 0SRC0EZ Replacement of Right Knee Joint with Articulating Spacer, Open Approach (ICD-10-PCS; 2021-02-23)
PROC: 0SBC0ZZ Excision of Right Knee Joint, Open Approach (ICD-10-PCS; 2021-02-23)
PROC: 0SBC0ZZ Excision of Right Knee Joint, Open Approach (ICD-10-PCS; 2021-02-23)
PROC: 0S9C3ZZ Drainage of Right Knee Joint, Percutaneous Approach (ICD-10-PCS; 2021-02-23)
PROC: 0SPC08Z Removal of Spacer from Right Knee Joint, Open Approach (ICD-10-PCS; principal; 2021-02-23 12:45)
PROC: 0SPC0JZ Removal of Synthetic Substitute from Right Knee Joint, Open Approach (ICD-10-PCS; 2021-02-23 12:45)
PROC: 05HY33Z Insertion of Infusion Device into Upper Vein, Percutaneous Approach (ICD-10-PCS; 2021-03-01)
DX: T84.53XA Infection and inflammatory reaction due to internal right knee prosthesis, initial encounter (principal); A41.9 Sepsis, unspecified organism; L02.415 Cutaneous abscess of right lower limb; E87.1 Hypo-osmolality and hyponatremia; D62 Acute posthemorrhagic anemia; L03.115 Cellulitis of right lower limb; L02.416 Cutaneous abscess of left lower limb; Z68.41 Body mass index [BMI] 40.0-44.9, adult; I10 Essential (primary) hypertension; E78.5 Hyperlipidemia, unspecified; B95.8 Unspecified staphylococcus as the cause of diseases classified elsewhere; Y83.1 Surgical operation with implant of artificial internal device as the cause of abnormal reaction of the patient, or of later complication, without mention of misadventure at the time of the procedure; E66.01 Morbid (severe) obesity due to excess calories; E78.00 Pure hypercholesterolemia, unspecified; E87.5 Hyperkalemia; Z20.822 Contact with and (suspected) exposure to COVID-19; Z96.652 Presence of left artificial knee joint; Z79.01 Long term (current) use of anticoagulants; Y92.89 Other specified places as the place of occurrence of the external cause
CPT/HCPCS: 36415; 36430; 71045; 73700; 80048; 80053; 80202; 82607; 82728; 82746; 82948; 83540; 83550; 83735; 83880; 84145; 84484; 85025; 85027; 85610; 85651; 85730; 86140; 86850; 86900; 86901; 86923; 87040; 87070; 87076; 87077; 87186; 87205; 87426; 93005; 97039; C1894; C9113; G0378; J0330; J0610; J0690; J0692; J0696; J1170; J1650; J1756; J1885; J1940; J2001; J2175; J2250; J2270; J2405; J2704; J2710; J3010; J3370; J3490; J7030; J7040; J7050; P9016; P9045

== ENCOUNTER 2021-04-27 10:00 | Inpatient (IN) | payer OTHER ==
[~2021-04-27] VITALS: Ht 160 cm; Wt 99.8 kg
[~2021-04-27 10:00] MED LIST: ISOS30TA92 PO
[2021-04-27 10:25] LABS: BASOPHILS % (AUTO) 1.3 % (0.0-5.0); EOSINOPHILS % (AUTO) 6.1 % (0.0-8.0); HEMATOCRIT 39.4 % (42-54); LYMPHOCYTES % (AUTO) 18.1 % (21.0-51.0); MEAN CORPUSCULAR HEMOGLOBIN 26.1 pg (27.0-33.0); MEAN CORPUSCULAR HGB CONC 29.9 g/dL (32.0-36.0); MEAN CORPUSCULAR VOLUME 87.2 fL (79-99); MONOCYTES % (AUTO) 7.8 % (3.0-13.0); NEUTROPHILS % (AUTO) 66.3 % (40.0-77.0); PLATELET COUNT (AUTO) 215 K/uL (130-400); RED BLOOD CELL COUNT(AUTO) 4.52 MIL/uL (4.50-6.20); RED CELL DISTRIBUTION WIDTH 15.9 % (11.0-15.5); WHITE BLOOD COUNT (AUTO) 4.8 K/uL (4.8-10.8)
[2021-04-27 10:26] LABS: APPEARANCE,URINE Clear (CLEAR); BILIRUBIN,URINE Negative (NEGATIVE); COLOR,URINE Yellow (YELLOW); GLUCOSE, URINE (UA) Negative (NEGATIVE); KETONES,URINE Negative (NEGATIVE); LEUKOCYTE ESTERASE ,URINE Negative (NEGATIVE); NITRATE,URINE Negative (NEGATIVE); OCCULT BLOOD,URINE Negative (NEGATIVE); PROTEIN,URINE Negative (NEGATIVE)
[2021-04-27 10:32] LABS: CREATININE 0.6 mg/dL (0.5-1.5); POTASSIUM 4.5 mmol/L (3.5-5.1)
[2021-04-27 10:42] LABS: INR 1.03 (0.85-1.15); PROTHROMBIN TIME 11.2 SEC (9.6-11.6)
[2021-04-28 10:48] VITALS: BP 140/72
[2021-04-28] MEDS ORDERED: SIMV-43 PO (12:21)
[2021-04-28] MEDS ORDERED: HYDR-4060 PO (12:21)
[2021-04-28] MEDS ORDERED: METO100T14 PO (12:21)
[2021-04-28] MEDS ORDERED: AMLO-258 PO (12:21)
[2021-04-28] MEDS ORDERED: LOSA100T58 PO (12:21)
[2021-04-29] VITALS (14 sets, daily range): BP systolic 91–126; BP diastolic 36–70
[2021-04-29] MEDS: CEFAZOLIN SODIUM 1 GM VIAL IVP SCH ×2 (06:00→15:06)
[2021-04-29] MEDS ORDERED: LACTATED RINGERS 1000ML 1,000 ML IV ONE (09:28)
[2021-04-29] MEDS ORDERED: FURO40TA5 PO (10:12)
[2021-04-29] MEDS ORDERED: LIDOCAINE PF 100MG/5ML (2%) SYRINGE 5ML ONE (13:14)
[2021-04-29] MEDS ORDERED: SUCCINYLCHOLINE CHLORIDE 20 MG/ML 10 ML VIAL ONE (13:14)
[2021-04-29] MEDS ORDERED: GLYCOPYRROLATE 1 MG/5 ML SYRINGE ONE (13:15)
[2021-04-29] MEDS ORDERED: PROPOFOL 10 MG/ML 20ML VIAL IV ONE (13:15)
[2021-04-29] MEDS ORDERED: DEXAMETHASONE SOD PHOSPHATE 10MG/ML 1ML VIAL ONE (13:15)
[2021-04-29] MEDS ORDERED: ONDANSETRON 4MG INJ ONE ×2 (13:15→13:29)
[2021-04-29] MEDS ORDERED: NEOSTIGMINE 5MG/5ML SYR IV ONE (13:15)
[2021-04-29] MEDS ORDERED: MIDAZOLAM HCL 1 MG/ML 2ML VIAL ONE (13:15)
[2021-04-29] MEDS ORDERED: ROCURONIUM 10MG/1ML SYR 10 MG/ML ML ONE (13:16)
[2021-04-29] MEDS ORDERED: FENTANYL CITRATE PF 50 MCG/1 ML 2ML VIAL ONE (13:17)
[2021-04-29] MEDS ORDERED: TRANEXAMIC ACID 1000MG/10ML ONE ×2 (14:04→20:26)
[2021-04-29] MEDS ORDERED: CEFAZOLIN SODIUM 1 GM VIAL ONE ×2 (14:04→18:54)
[2021-04-29] MEDS ORDERED: ROPIVACAINE 0.5% 5MG/ML 30ML IJ ONE (14:37)
[2021-04-29] MEDS ORDERED: CEFAZOLIN SODIUM 1 GM VIAL IRRIG ONE (16:30)
[2021-04-29] MEDS ORDERED: PHENYLEPHRINE HCL 10 MG/ML 1ML VIAL IV ONE (16:33)
[2021-04-29 17:32] LABS: APPEARANCE BODY FLUID BLOODY (CLEAR); BODY FLUID WBC 73 /cu. mm.; COLOR,BODY FLUID RED (LT YELLOW); SPECIMENTYPE,BODY FLUID SYNOVIAL; TOTAL VOLUME,BODY FLUID 10 mL
[2021-04-29 17:33] LABS: BODY FLUID RBC 21500 /cu. mm.
[2021-04-29 17:39] LABS: BF LYMPHOCYTE 62 %; BF MONOCYTE 3 %
[2021-04-29] MEDS ORDERED: VANCOMYCIN 1G VIAL ONE ×2 (17:45→17:54)
[2021-04-29] MEDS ORDERED: MEPERIDINE-PF 25 MG/ML SYG ONE ×2 (20:25→20:50)
[2021-04-29] MEDS ORDERED: LIDOCAINE HCL-MPF 1% 2ML VIAL IV PRN (20:30)
[2021-04-29] MEDS ORDERED: KCL 20 MEQ ERTAB PO PRN (20:30)
[2021-04-29] MEDS ORDERED: POTASSIUM CHLORIDE 10% ELIXIR 20 MEQ/15 ML UDCUP PO PRN (20:30)
[2021-04-29] MEDS ORDERED: POTASSIUM CHLORIDE 20MEQ/100ML 100 ML IV PRN (20:30)
[2021-04-29] MEDS ORDERED: FERROUS FUMARATE 324 MG TABLET PO PRN (20:30)
[2021-04-29] MEDS ORDERED: DiphenhydrAMINE HCL 50 MG/ML VIAL IVP PRN (20:30)
[2021-04-29] MEDS ORDERED: ONDANSETRON 4MG INJ IVP PRN (20:30)
[2021-04-29] MEDS ORDERED: CALCIUM CARB 500MG PO PRN (20:30)
[2021-04-29] MEDS ORDERED: OXYCODONE HCL 5 MG TAB PO PRN (20:30)
[2021-04-29] MEDS ORDERED: TRAMADOL HCL 50 MG TABLET PO PRN (20:30)
[2021-04-29] MEDS ORDERED: KETOROLAC 30MG VIAL (30MG/ML) ONE (20:40)
[2021-04-29] MEDS: PREGABALIN 25 MG CAP PO SCH (22:04)
[2021-04-29] MEDS: FAMOTIDINE 20MG TAB PO SCH (22:05)
[2021-04-29] MEDS: CELECOXIB 200 MG CAP PO SCH (22:05)
[2021-04-29] MEDS: ACETAMINOPHEN 500 MG TABLET PO SCH (22:10)
[2021-04-29] MEDS: 0.9%NACL 1000ML 1,000 ML IV SCH (22:11)
[2021-04-29] MEDS: OXYCODONE HCL 5 MG TAB PO PRN (23:49)
[2021-04-30] VITALS (9 sets, daily range): BP systolic 93–129; BP diastolic 45–72
[2021-04-30] MEDS: KETOROLAC 15MG/ML VIAL (15MG/ML) IV PRN (00:56)
[2021-04-30] MEDS: CEFAZOLIN SODIUM 1 GM VIAL IVP SCH ×2 (01:00→08:41)
[2021-04-30] MEDS: ACETAMINOPHEN 500 MG TABLET PO SCH ×3 (04:50→19:18)
[2021-04-30 04:55] LABS: HEMATOCRIT 31.6 % (42-54); MEAN CORPUSCULAR HGB CONC 30.4 g/dL (32.0-36.0); MEAN CORPUSCULAR VOLUME 85.6 fL (79-99); RED BLOOD CELL COUNT(AUTO) 3.69 MIL/uL (4.50-6.20); RED CELL DISTRIBUTION WIDTH 15.5 % (11.0-15.5); WHITE BLOOD COUNT (AUTO) 7.7 K/uL (4.8-10.8)
[2021-04-30 04:59] LABS: CREATININE 0.8 mg/dL (0.5-1.5); POTASSIUM 4.8 mmol/L (3.5-5.1)
[2021-04-30] MEDS: 0.9%NACL 1000ML 1,000 ML IV SCH ×2 (05:51→08:39)
[2021-04-30] MEDS: POLYETHYLENE GLYCOL 3350 17 GM POWD.PACK PO SCH (08:40)
[2021-04-30] MEDS: CELECOXIB 200 MG CAP PO SCH ×2 (08:41→19:15)
[2021-04-30] MEDS: TAMSULOSIN HCL 0.4 MG CAP.ER.24H PO SCH (08:41)
[2021-04-30] MEDS: APIXABAN 2.5 MG TABLET PO SCH ×2 (08:41→19:16)
[2021-04-30] MEDS: PREGABALIN 25 MG CAP PO SCH ×2 (08:41→19:15)
[2021-04-30] MEDS: FAMOTIDINE 20MG TAB PO SCH ×2 (08:41→19:16)
[2021-04-30] MEDS: METOPROLOL TARTRATE 50 MG TAB PO SCH (08:42)
[2021-04-30] MEDS: LOSARTAN 100 MG TABLET PO SCH (08:42)
[2021-04-30] MEDS: AMLODIPINE 5 MG TAB PO SCH (08:42)
[2021-04-30] MEDS: SIMVASTATIN 20 MG TABLET PO SCH (08:46)
[2021-04-30] MEDS: OXYCODONE HCL 5 MG TAB PO PRN ×3 (12:04→22:27)
[2021-04-30] MEDS: ISOSORBIDE MONO 30MG SR TAB PO SCH (12:04)
[2021-05-01] MEDS: KETOROLAC 15MG/ML VIAL (15MG/ML) IV PRN (00:05)
[2021-05-01 03:21] VITALS: BP 114/63
[2021-05-01 03:55] LABS: HEMATOCRIT 28.7 % (42-54); MEAN CORPUSCULAR HEMOGLOBIN 26.4 pg (27.0-33.0); MEAN CORPUSCULAR HGB CONC 30.3 g/dL (32.0-36.0); MEAN CORPUSCULAR VOLUME 87.2 fL (79-99); RED BLOOD CELL COUNT(AUTO) 3.29 MIL/uL (4.50-6.20); RED CELL DISTRIBUTION WIDTH 15.9 % (11.0-15.5); WHITE BLOOD COUNT (AUTO) 5.7 K/uL (4.8-10.8)
[2021-05-01] MEDS: ACETAMINOPHEN 500 MG TABLET PO SCH ×3 (03:56→20:50)
[2021-05-01 04:07] LABS: CREATININE 0.8 mg/dL (0.5-1.5)
[2021-05-01 08:00] VITALS: BP 135/70
[2021-05-01] MEDS: SIMVASTATIN 20 MG TABLET PO SCH ×2 (09:00→20:50)
[2021-05-01] MEDS: LOSARTAN 100 MG TABLET PO SCH (09:00)
[2021-05-01] MEDS: METOPROLOL TARTRATE 50 MG TAB PO SCH (09:00)
[2021-05-01] MEDS: TAMSULOSIN HCL 0.4 MG CAP.ER.24H PO SCH (09:00)
[2021-05-01] MEDS: AMLODIPINE 5 MG TAB PO SCH (09:00)
[2021-05-01] MEDS: CELECOXIB 200 MG CAP PO SCH ×2 (10:27→20:50)
[2021-05-01] MEDS: FAMOTIDINE 20MG TAB PO SCH ×2 (10:28→20:50)
[2021-05-01] MEDS: PREGABALIN 25 MG CAP PO SCH ×2 (10:28→20:51)
[2021-05-01] MEDS: OXYCODONE HCL 5 MG TAB PO PRN ×2 (10:28→22:33)
[2021-05-01] MEDS: ISOSORBIDE MONO 30MG SR TAB PO SCH (10:29)
[2021-05-01] MEDS: POLYETHYLENE GLYCOL 3350 17 GM POWD.PACK PO SCH (10:29)
[2021-05-01] MEDS: APIXABAN 2.5 MG TABLET PO SCH ×2 (10:29→20:50)
[2021-05-01 10:53] VITALS: BP 127/73
[2021-05-01 16:02] VITALS: BP 126/78
[2021-05-01 19:12] VITALS: BP 150/69
[2021-05-01 23:14] VITALS: BP 136/70
[2021-05-02] MEDS: ACETAMINOPHEN 500 MG TABLET PO SCH ×3 (03:22→19:28)
[2021-05-02 04:17] LABS: MEAN CORPUSCULAR HEMOGLOBIN 26.2 pg (27.0-33.0); MEAN CORPUSCULAR HGB CONC 30.6 g/dL (32.0-36.0); MEAN CORPUSCULAR VOLUME 85.4 fL (79-99); RED BLOOD CELL COUNT(AUTO) 3.63 MIL/uL (4.50-6.20); RED CELL DISTRIBUTION WIDTH 15.8 % (11.0-15.5); WHITE BLOOD COUNT (AUTO) 3.6 K/uL (4.8-10.8)
[2021-05-02 04:20] LABS: CREATININE 0.5 mg/dL (0.5-1.5); POTASSIUM 4.8 mmol/L (3.5-5.1)
[2021-05-02 04:39] VITALS: BP 150/84
[2021-05-02 08:23] VITALS: BP 136/79
[2021-05-02] MEDS: POLYETHYLENE GLYCOL 3350 17 GM POWD.PACK PO SCH (08:55)
[2021-05-02] MEDS: FAMOTIDINE 20MG TAB PO SCH ×2 (08:56→19:50)
[2021-05-02] MEDS: METOPROLOL TARTRATE 50 MG TAB PO SCH ×2 (08:56→19:53)
[2021-05-02] MEDS: ISOSORBIDE MONO 30MG SR TAB PO SCH (08:56)
[2021-05-02] MEDS: CELECOXIB 200 MG CAP PO SCH ×2 (08:56→19:51)
[2021-05-02] MEDS: PREGABALIN 25 MG CAP PO SCH ×2 (08:56→19:50)
[2021-05-02] MEDS: APIXABAN 2.5 MG TABLET PO SCH ×2 (08:56→19:51)
[2021-05-02] MEDS: OXYCODONE HCL 5 MG TAB PO PRN (08:57)
[2021-05-02] MEDS: AMLODIPINE 5 MG TAB PO SCH (09:00)
[2021-05-02] MEDS: TAMSULOSIN HCL 0.4 MG CAP.ER.24H PO SCH (09:00)
[2021-05-02] MEDS: LOSARTAN 100 MG TABLET PO SCH (09:00)
[2021-05-02 10:53] VITALS: BP 126/64
[2021-05-02 16:21] VITALS: BP 123/68
[2021-05-02] MEDS ORDERED: BISACODYL 5 MG TABLET.DR PO PRN (17:30)
[2021-05-02 19:37] VITALS: BP 149/85
[2021-05-02] MEDS: SIMVASTATIN 20 MG TABLET PO SCH (19:50)
[2021-05-02] MEDS ORDERED: BISACODYL 10 MG SUPP.RECT RC PRN (20:30)
[2021-05-02 23:47] VITALS: BP 145/90
[2021-05-03] MEDS: OXYCODONE HCL 5 MG TAB PO PRN (00:22)
[2021-05-03] MEDS: KETOROLAC 15MG/ML VIAL (15MG/ML) IV PRN (01:49)
[2021-05-03 03:10] VITALS: BP 137/78
[2021-05-03] MEDS: ACETAMINOPHEN 500 MG TABLET PO SCH ×3 (04:09→20:54)
[2021-05-03 08:04] VITALS: BP 132/59
[2021-05-03] MEDS: TAMSULOSIN HCL 0.4 MG CAP.ER.24H PO SCH (08:15)
[2021-05-03] MEDS: PREGABALIN 25 MG CAP PO SCH ×2 (08:55→20:50)
[2021-05-03] MEDS: APIXABAN 2.5 MG TABLET PO SCH ×2 (08:55→20:51)
[2021-05-03] MEDS: AMLODIPINE 5 MG TAB PO SCH (08:55)
[2021-05-03] MEDS: METOPROLOL TARTRATE 50 MG TAB PO SCH ×2 (08:55→20:50)
[2021-05-03] MEDS: CELECOXIB 200 MG CAP PO SCH ×2 (08:55→20:50)
[2021-05-03] MEDS: ISOSORBIDE MONO 30MG SR TAB PO SCH (08:56)
[2021-05-03] MEDS: FAMOTIDINE 20MG TAB PO SCH ×2 (08:56→20:50)
[2021-05-03] MEDS: POLYETHYLENE GLYCOL 3350 17 GM POWD.PACK PO SCH (08:56)
[2021-05-03] MEDS: LOSARTAN 100 MG TABLET PO SCH (08:56)
[2021-05-03 11:15] VITALS: BP 138/77
[2021-05-03 16:13] VITALS: BP 136/74
[2021-05-03] MEDS: SIMVASTATIN 20 MG TABLET PO SCH (20:50)
[2021-05-03 20:51] VITALS: BP 143/71
[2021-05-03] MEDS: DOXYCYCLINE HYCLATE 100 MG TABLET PO SCH (21:06)
[2021-05-03 23:36] VITALS: BP 140/72
[2021-05-04] MEDS: TEMAZEPAM 15 MG CAPSULE PO PRN (00:22)
[2021-05-04] MEDS: ACETAMINOPHEN 500 MG TABLET PO SCH ×3 (03:49→19:52)
[2021-05-04 04:31] VITALS: BP 137/74
[2021-05-04 08:01] VITALS: BP 145/78
[2021-05-04] MEDS: DOXYCYCLINE HYCLATE 100 MG TABLET PO SCH ×2 (09:32→19:49)
[2021-05-04] MEDS: LOSARTAN 100 MG TABLET PO SCH (09:32)
[2021-05-04] MEDS: ISOSORBIDE MONO 30MG SR TAB PO SCH (09:32)
[2021-05-04] MEDS: TAMSULOSIN HCL 0.4 MG CAP.ER.24H PO SCH (09:32)
[2021-05-04] MEDS: FAMOTIDINE 20MG TAB PO SCH ×2 (09:32→19:49)
[2021-05-04] MEDS: PREGABALIN 25 MG CAP PO SCH ×2 (09:32→19:49)
[2021-05-04] MEDS: CELECOXIB 200 MG CAP PO SCH ×2 (09:32→19:49)
[2021-05-04] MEDS: METOPROLOL TARTRATE 50 MG TAB PO SCH ×2 (09:32→19:50)
[2021-05-04] MEDS: APIXABAN 2.5 MG TABLET PO SCH ×2 (09:33→19:49)
[2021-05-04] MEDS: AMLODIPINE 5 MG TAB PO SCH (09:33)
[2021-05-04] MEDS: POLYETHYLENE GLYCOL 3350 17 GM POWD.PACK PO SCH (09:33)
[2021-05-04 11:00] VITALS: BP 141/82
[2021-05-04 16:20] VITALS: BP 117/65
[2021-05-04] MEDS: SIMVASTATIN 20 MG TABLET PO SCH (19:49)
[2021-05-04 19:57] VITALS: BP 118/76
[2021-05-05 00:10] VITALS: BP 116/69
[2021-05-05] MEDS: TEMAZEPAM 15 MG CAPSULE PO PRN (00:25)
[2021-05-05 03:59] VITALS: BP 126/72
[2021-05-05] MEDS: ACETAMINOPHEN 500 MG TABLET PO SCH ×3 (05:51→14:35)
[2021-05-05] MEDS: PREGABALIN 25 MG CAP PO SCH (09:11)
[2021-05-05] MEDS: ISOSORBIDE MONO 30MG SR TAB PO SCH (09:11)
[2021-05-05] MEDS: AMLODIPINE 5 MG TAB PO SCH (09:11)
[2021-05-05] MEDS: DOXYCYCLINE HYCLATE 100 MG TABLET PO SCH (09:11)
[2021-05-05] MEDS: LOSARTAN 100 MG TABLET PO SCH (09:11)
[2021-05-05] MEDS: TAMSULOSIN HCL 0.4 MG CAP.ER.24H PO SCH (09:11)
[2021-05-05] MEDS: CELECOXIB 200 MG CAP PO SCH (09:11)
[2021-05-05 09:12] VITALS: BP 140/77
[2021-05-05] MEDS: APIXABAN 2.5 MG TABLET PO SCH (09:12)
[2021-05-05] MEDS: FAMOTIDINE 20MG TAB PO SCH (09:12)
[2021-05-05] MEDS: POLYETHYLENE GLYCOL 3350 17 GM POWD.PACK PO SCH (09:12)
[2021-05-05] MEDS: METOPROLOL TARTRATE 50 MG TAB PO SCH (09:12)
[2021-05-05 10:54] VITALS: BP 125/73
[2021-05-05 16:21] VITALS: BP 100/58
== END 2021-05-05 19:20 | DRG 487 ==
LOC: DAHIP 04-29 08:09 → 4AH 04-29 23:43
PROVIDERS: ADMIT Orthopaedic Surgery; ATTEND Orthopaedic Surgery
PROC: 0SPC08Z Removal of Spacer from Right Knee Joint, Open Approach (ICD-10-PCS; principal; 2021-04-29 14:42)
PROC: 0SBC0ZZ Excision of Right Knee Joint, Open Approach (ICD-10-PCS; 2021-04-29 14:42)
DX: T84.53XA Infection and inflammatory reaction due to internal right knee prosthesis, initial encounter (principal); Z20.822 Contact with and (suspected) exposure to COVID-19; I10 Essential (primary) hypertension; E78.00 Pure hypercholesterolemia, unspecified; Z96.651 Presence of right artificial knee joint; D64.9 Anemia, unspecified; Y83.1 Surgical operation with implant of artificial internal device as the cause of abnormal reaction of the patient, or of later complication, without mention of misadventure at the time of the procedure; Y92.89 Other specified places as the place of occurrence of the external cause
CPT/HCPCS: 36415; 73562; 80048; 81003; 85025; 85027; 85610; 87070; 87076; 87088; 87205; 87635; 87641; 89051; 97039; G0378; J0330; J0690; J1100; J1885; J2001; J2175; J2250; J2370; J2405; J2704; J2710; J2795; J3010; J3370; J3490; J7120

== ENCOUNTER 2021-09-26 22:35 | Inpatient (IN) | payer OTHER ==
[~2021-09-26] VITALS: Ht 160 cm; Wt 125.3 kg
[~2021-09-26 22:35] MED LIST changes: +AMLO-258 PO; +FURO40TA5 PO; +HYDR-4060 PO; +LOSA100T58 PO; +METO100T14 PO; +SIMV-43 PO
[2021-09-26 23:30] LABS: BASOPHILS % (AUTO) 0.5 % (0.0-5.0); EOSINOPHILS % (AUTO) 3.3 % (0.0-8.0); HEMATOCRIT 37.6 % (42-54); LYMPHOCYTES % (AUTO) 12.9 % (21.0-51.0); MEAN CORPUSCULAR HEMOGLOBIN 23.9 pg (27.0-33.0); MEAN CORPUSCULAR HGB CONC 29.8 g/dL (32.0-36.0); MEAN CORPUSCULAR VOLUME 80.3 fL (79-99); MONOCYTES % (AUTO) 7.2 % (3.0-13.0); NEUTROPHILS % (AUTO) 75.1 % (40.0-77.0); PLATELET COUNT (AUTO) 343 K/uL (130-400); RED BLOOD CELL COUNT(AUTO) 4.68 MIL/uL (4.50-6.20); RED CELL DISTRIBUTION WIDTH 17.6 % (11.0-15.5); WHITE BLOOD COUNT (AUTO) 7.9 K/uL (4.8-10.8)
[2021-09-26] MEDS ORDERED: LIDOCAINE HCL 1% 20 ML VIAL INJ ONE (23:30)
[2021-09-26 23:53] LABS: BILIRUBIN,TOTAL 0.2 mg/dL (0.2-1.0); CREATININE 0.8 mg/dL (0.5-1.5); TOTAL PROTEIN, SERUM 9.7 g/dL (6.0-8.3)
[2021-09-27] MEDS ORDERED: LIDOCAINE HCL MPF 1% 5ML VIAL ONE ×3 (00:31→03:31)
[2021-09-27 00:47] LABS: ERYTHROCYTE SEDIMENTATION RATE 106 MM/HR (0-20)
[2021-09-27] MEDS ORDERED: VANCOMYCIN 1G VIAL IVPB ONE (04:00)
[2021-09-27] MEDS ORDERED: CLINDAMYCIN IVPB 900MG/50ML 50 ML IV ONE (04:00)
[2021-09-27] MEDS ORDERED: VANCOMYCIN 1G/250ML KIT 250 ML IV ONE (04:00)
[2021-09-27] MEDS ORDERED: 0.9% NACL 250ML 250 ML ONE (04:10)
[2021-09-27] MEDS ORDERED: VANCOMYCIN PROTOCOL PER PHARMACY IV PRN (04:30)
[2021-09-27] MEDS ORDERED: ONDANSETRON 4MG INJ IV PRN (04:30)
[2021-09-27] MEDS: ZOSYN 3.375GM+NS 50ML 50 ML IV SCH ×3 (05:35→21:19)
[2021-09-27] MEDS: ENOXAPARIN SODIUM 40 MG/0.4 ML SYRINGE SQ SCH (08:18)
[2021-09-27] MEDS: FAMOTIDINE 20MG TAB PO SCH (08:18)
[2021-09-27] MEDS: VANCOMYCIN 1.5 GM/250 ML BAG 250 ML IV SCH ×2 (08:57→21:19)
[2021-09-27 09:29] LABS: BASOPHILS % (AUTO) 0.6 % (0.0-5.0); EOSINOPHILS % (AUTO) 2.8 % (0.0-8.0); HEMATOCRIT 33.4 % (42-54); LYMPHOCYTES % (AUTO) 10.8 % (21.0-51.0); MEAN CORPUSCULAR HGB CONC 30.2 g/dL (32.0-36.0); MEAN CORPUSCULAR VOLUME 79.5 fL (79-99); MONOCYTES % (AUTO) 6.4 % (3.0-13.0); NEUTROPHILS % (AUTO) 78.6 % (40.0-77.0); PLATELET COUNT (AUTO) 307 K/uL (130-400); RED CELL DISTRIBUTION WIDTH 17.5 % (11.0-15.5); WHITE BLOOD COUNT (AUTO) 6.4 K/uL (4.8-10.8)
[2021-09-27 09:40] LABS: CREATININE 0.6 mg/dL (0.5-1.5); POTASSIUM 4.3 mmol/L (3.5-5.1)
[2021-09-27 10:44] LABS: ERYTHROCYTE SEDIMENTATION RATE 81 MM/HR (0-20)
[2021-09-27] MEDS ORDERED: GUAIFENESIN-DM 200/20 MG 10 ML ONE (12:59)
[2021-09-27] MEDS: GUAIFENESIN-DM 200/20 MG 10 ML PO PRN (13:17)
[2021-09-27] MEDS ORDERED: 0.9%NACL 50ML 50 ML IV ONE ×2 (13:19→21:09)
[2021-09-27] MEDS: HYDROMORPHONE 1 MG INJ IV PRN (14:19)
[2021-09-27] MEDS ORDERED: METOPROLOL TARTRATE 50 MG TAB PO ONE (17:00)
[2021-09-27] MEDS: AMLODIPINE 5 MG TAB PO SCH (21:19)
[2021-09-28] MEDS: HYDROMORPHONE 1 MG INJ IV PRN ×2 (00:59→23:18)
[2021-09-28] MEDS: ACETAMINOPHEN 325 MG TAB PO PRN (02:12)
[2021-09-28] MEDS: ZOSYN 3.375GM+NS 50ML 50 ML IV SCH ×3 (05:26→20:43)
[2021-09-28] MEDS: METOPROLOL TARTRATE 50 MG TAB PO SCH ×3 (06:31→20:43)
[2021-09-28 08:32] LABS: BASOPHILS % (AUTO) 0.5 % (0.0-5.0); HEMATOCRIT 36.1 % (42-54); LYMPHOCYTES % (AUTO) 9.6 % (21.0-51.0); MEAN CORPUSCULAR HEMOGLOBIN 24.5 pg (27.0-33.0); MEAN CORPUSCULAR HGB CONC 30.2 g/dL (32.0-36.0); MEAN CORPUSCULAR VOLUME 81.1 fL (79-99); MONOCYTES % (AUTO) 6.7 % (3.0-13.0); NEUTROPHILS % (AUTO) 78.4 % (40.0-77.0); PLATELET COUNT (AUTO) 309 K/uL (130-400); RED BLOOD CELL COUNT(AUTO) 4.45 MIL/uL (4.50-6.20); RED CELL DISTRIBUTION WIDTH 17.5 % (11.0-15.5); WHITE BLOOD COUNT (AUTO) 6.4 K/uL (4.8-10.8)
[2021-09-28] MEDS: AMLODIPINE 5 MG TAB PO SCH ×2 (08:55→20:43)
[2021-09-28] MEDS: ENOXAPARIN SODIUM 40 MG/0.4 ML SYRINGE SQ SCH (08:55)
[2021-09-28] MEDS: VANCOMYCIN 1.5 GM/250 ML BAG 250 ML IV SCH ×2 (08:55→21:00)
[2021-09-28] MEDS: FAMOTIDINE 20MG TAB PO SCH (08:55)
[2021-09-28 09:12] LABS: CREATININE 0.7 mg/dL (0.5-1.5); MAGNESIUM 2.3 mg/dL (1.80-2.40); PHOSPHORUS 4.8 mg/dL (2.5-4.9); POTASSIUM 4.8 mmol/L (3.5-5.1)
[2021-09-28 11:30] VITALS: BP 111/63
[2021-09-28] MEDS ORDERED: METO100T14 PO (12:27)
[2021-09-28] MEDS ORDERED: LOSA1TAB42 PO (12:32)
[2021-09-28] MEDS: GUAIFENESIN-DM 200/20 MG 10 ML PO PRN ×2 (12:58→18:28)
[2021-09-28] MEDS: MORPHINE 2 MG SYG IV PRN (14:02)
[2021-09-28 14:10] LABS: APPEARANCE BODY FLUID TURBID (CLEAR); COLOR,BODY FLUID RED (LT YELLOW); SPECIMENTYPE,BODY FLUID SYNOVIAL; TOTAL VOLUME,BODY FLUID 30 mL
[2021-09-28 14:11] LABS: BODY FLUID RBC 35000 /cu. mm.; BODY FLUID WBC 46513 /cu. mm.
[2021-09-28 14:13] LABS: BF LYMPHOCYTE 4 %; BF MESOTHELIAL 2 %; BF MONOCYTE 1 %
[2021-09-28 15:00] VITALS: BP 125/65
[2021-09-28 20:05] VITALS: BP 134/75
[2021-09-28] MEDS ORDERED: VANCOMYCIN 1G/250ML KIT 0 ML IV ONE (23:04)
[2021-09-28 23:19] VITALS: BP 121/68
[2021-09-28] MEDS ORDERED: VANCOMYCIN 1G/250ML KIT 250 ML IV ONE (23:47)
[2021-09-29 03:17] VITALS: BP 125/58
[2021-09-29] MEDS: MORPHINE 2 MG SYG IV PRN ×2 (04:32→14:34)
[2021-09-29] MEDS: ZOSYN 3.375GM+NS 50ML 50 ML IV SCH ×3 (04:37→20:59)
[2021-09-29 06:35] LABS: BASOPHILS % (AUTO) 0.5 % (0.0-5.0); EOSINOPHILS % (AUTO) 4.6 % (0.0-8.0); HEMATOCRIT 34.5 % (42-54); LYMPHOCYTES % (AUTO) 12.3 % (21.0-51.0); MEAN CORPUSCULAR HEMOGLOBIN 24.5 pg (27.0-33.0); MEAN CORPUSCULAR HGB CONC 30.1 g/dL (32.0-36.0); MEAN CORPUSCULAR VOLUME 81.4 fL (79-99); MONOCYTES % (AUTO) 6.6 % (3.0-13.0); NEUTROPHILS % (AUTO) 75.2 % (40.0-77.0); PLATELET COUNT (AUTO) 299 K/uL (130-400); RED BLOOD CELL COUNT(AUTO) 4.24 MIL/uL (4.50-6.20); RED CELL DISTRIBUTION WIDTH 17.6 % (11.0-15.5); WHITE BLOOD COUNT (AUTO) 6.3 K/uL (4.8-10.8)
[2021-09-29 06:54] LABS: ALBUMIN 2.7 g/dL (3.5-5.0); BILIRUBIN,TOTAL 0.3 mg/dL (0.2-1.0); CREATININE 0.7 mg/dL (0.5-1.5); POTASSIUM 4.4 mmol/L (3.5-5.1); TOTAL PROTEIN, SERUM 8.9 g/dL (6.0-8.3)
[2021-09-29 07:21] LABS: B-TYPE NATRIURETIC PEPTIDE 10 pg/mL (0-100)
[2021-09-29 07:30] VITALS: BP 133/74
[2021-09-29] MEDS ORDERED: 0.9% NACL 250ML 250 ML ONE ×3 (07:34→20:58)
[2021-09-29] MEDS: VANCOMYCIN 1G/250ML KIT 250 ML IV SCH ×3 (07:36→20:59)
[2021-09-29 07:59] LABS: ERYTHROCYTE SEDIMENTATION RATE 105 MM/HR (0-20)
[2021-09-29] MEDS: METOPROLOL TARTRATE 50 MG TAB PO SCH ×2 (08:48→21:00)
[2021-09-29] MEDS: AMLODIPINE 5 MG TAB PO SCH ×2 (08:48→21:00)
[2021-09-29] MEDS: ENOXAPARIN SODIUM 40 MG/0.4 ML SYRINGE SQ SCH (08:48)
[2021-09-29] MEDS: FAMOTIDINE 20MG TAB PO SCH (08:48)
[2021-09-29] MEDS: ACETAMINOPHEN 325 MG TAB PO PRN (10:28)
[2021-09-29 11:30] VITALS: BP 117/66
[2021-09-29 16:00] VITALS: BP 127/66
[2021-09-29 19:56] VITALS: BP 129/55
[2021-09-29 23:27] VITALS: BP 129/64
[2021-09-29] MEDS: GUAIFENESIN-DM 200/20 MG 10 ML PO PRN (23:41)
[2021-09-29] MEDS: HYDROMORPHONE 1 MG INJ IV PRN (23:42)
[2021-09-30 03:50] VITALS: BP 128/67
[2021-09-30] MEDS: ZOSYN 3.375GM+NS 50ML 50 ML IV SCH (05:56)
[2021-09-30] MEDS: MORPHINE 2 MG SYG IV PRN (05:56)
[2021-09-30] MEDS: VANCOMYCIN 1G/250ML KIT 250 ML IV SCH ×3 (07:54→21:53)
[2021-09-30 08:00] VITALS: BP 135/69
[2021-09-30] MEDS: AMLODIPINE 5 MG TAB PO SCH ×2 (09:35→20:11)
[2021-09-30] MEDS: FAMOTIDINE 20MG TAB PO SCH (09:36)
[2021-09-30] MEDS: METOPROLOL TARTRATE 50 MG TAB PO SCH ×2 (09:37→20:11)
[2021-09-30] MEDS: ENOXAPARIN SODIUM 40 MG/0.4 ML SYRINGE SQ SCH (09:37)
[2021-09-30 12:00] VITALS: BP 130/68
[2021-09-30] MEDS ORDERED: 0.9% NACL 250ML 250 ML ONE ×2 (14:21→21:48)
[2021-09-30 16:00] VITALS: BP 134/78
[2021-09-30 20:00] VITALS: BP 133/70
[2021-09-30] MEDS ORDERED: HYDROMORPHONE 0.5 MG SYG (0.5MG/0.5ML) ONE (20:06)
[2021-09-30] MEDS ORDERED: HYDROMORPHONE 0.5 MG SYG (0.5MG/0.5ML) IV PRN (21:00)
[2021-10-01] VITALS (21 sets, daily range): BP systolic 91–141; BP diastolic 49–82
[2021-10-01 04:29] LABS: HEMATOCRIT 35.3 % (42-54); MEAN CORPUSCULAR HEMOGLOBIN 24.2 pg (27.0-33.0); MEAN CORPUSCULAR HGB CONC 29.7 g/dL (32.0-36.0); MEAN CORPUSCULAR VOLUME 81.5 fL (79-99); RED BLOOD CELL COUNT(AUTO) 4.33 MIL/uL (4.50-6.20); RED CELL DISTRIBUTION WIDTH 17.3 % (11.0-15.5); WHITE BLOOD COUNT (AUTO) 6.7 K/uL (4.8-10.8)
[2021-10-01 04:40] LABS: CREATININE 0.7 mg/dL (0.5-1.5); POTASSIUM 4.3 mmol/L (3.5-5.1)
[2021-10-01] MEDS ORDERED: 0.9% NACL 250ML 250 ML ONE ×2 (05:52→22:12)
[2021-10-01] MEDS: VANCOMYCIN 1G/250ML KIT 250 ML IV SCH ×2 (05:59→22:18)
[2021-10-01] MEDS: ENOXAPARIN SODIUM 40 MG/0.4 ML SYRINGE SQ SCH (09:00)
[2021-10-01] MEDS: AMLODIPINE 5 MG TAB PO SCH ×2 (09:00→20:36)
[2021-10-01] MEDS: FAMOTIDINE 20MG TAB PO SCH ×2 (09:00→20:36)
[2021-10-01] MEDS: METOPROLOL TARTRATE 50 MG TAB PO SCH ×2 (09:49→20:35)
[2021-10-01] MEDS ORDERED: 0.9%NACL 1000ML 0 ML IV ONE (10:38)
[2021-10-01] MEDS ORDERED: LACTATED RINGERS 1000ML 1,000 ML IV ONE (11:10)
[2021-10-01 11:34] LABS: INR 1.06 (0.85-1.15); PROTHROMBIN TIME 11.5 SEC (9.6-11.6)
[2021-10-01 11:41] LABS: PARTIAL THROMBOPLASTIN TIME 23.3 SEC (26.3-35.5)
[2021-10-01] MEDS ORDERED: MIDAZOLAM HCL 1 MG/ML 2ML VIAL ONE (12:57)
[2021-10-01] MEDS ORDERED: ROCURONIUM 10MG/1ML SYR 10 MG/ML ML ONE ×2 (12:57→15:04)
[2021-10-01] MEDS ORDERED: PROPOFOL 10 MG/ML 20ML VIAL IV ONE (12:57)
[2021-10-01] MEDS ORDERED: LIDOCAINE PF 100MG/5ML (2%) SYRINGE 5ML ONE (12:57)
[2021-10-01] MEDS ORDERED: CEFAZOLIN SODIUM 1 GM VIAL ONE ×2 (13:23→18:00)
[2021-10-01] MEDS ORDERED: TRANEXAMIC ACID 1000MG/10ML ONE ×2 (13:23→19:44)
[2021-10-01] MEDS ORDERED: VANCOMYCIN 1G VIAL ONE ×6 (13:23→18:02)
[2021-10-01] MEDS ORDERED: PHENYLEPHRINE HCL 10 MG/ML 1ML VIAL IV ONE (13:24)
[2021-10-01] MEDS ORDERED: EPHEDRINE SULFATE 50 MG/ML AMPULE ONE (13:39)
[2021-10-01] MEDS ORDERED: SUCCINYLCHOLINE CHLORIDE 20 MG/ML 10 ML VIAL ONE (13:47)
[2021-10-01] MEDS ORDERED: ONDANSETRON 4MG INJ ONE (17:29)
[2021-10-01 18:02] LABS: APPEARANCE BODY FLUID BLOODY (CLEAR); COLOR,BODY FLUID ORANGE (LT YELLOW); SPECIMENTYPE,BODY FLUID SYNOVIAL; TOTAL VOLUME,BODY FLUID 20 mL
[2021-10-01 18:03] LABS: BODY FLUID WBC 34800 /cu. mm.
[2021-10-01 18:04] LABS: BODY FLUID RBC 74325 /cu. mm.
[2021-10-01] MEDS ORDERED: FENTANYL CITRATE PF 50 MCG/1 ML 2ML VIAL ONE ×3 (18:10→18:55)
[2021-10-01] MEDS ORDERED: KCL 20 MEQ ERTAB PO PRN ×2 (18:30→19:30)
[2021-10-01] MEDS ORDERED: DiphenhydrAMINE HCL 50 MG/ML VIAL IVP PRN ×2 (18:30→19:30)
[2021-10-01] MEDS ORDERED: TRAMADOL HCL 50 MG TABLET PO PRN ×2 (18:30→19:30)
[2021-10-01] MEDS ORDERED: POTASSIUM CHLORIDE 20MEQ/100ML 100 ML IV PRN ×2 (18:30→19:30)
[2021-10-01] MEDS ORDERED: LIDOCAINE HCL-MPF 1% 2ML VIAL IV PRN ×2 (18:30→19:30)
[2021-10-01] MEDS ORDERED: CALCIUM CARB 500MG PO PRN ×2 (18:30→19:30)
[2021-10-01] MEDS ORDERED: KETOROLAC 15MG/ML VIAL (15MG/ML) IV PRN (18:30)
[2021-10-01] MEDS ORDERED: OXYCODONE HCL 5 MG TAB PO PRN ×3 (18:30→19:30)
[2021-10-01] MEDS ORDERED: ACETAMINOPHEN 500 MG TABLET PO SCH (18:30)
[2021-10-01] MEDS ORDERED: POTASSIUM CHLORIDE 10% ELIXIR 20 MEQ/15 ML UDCUP PO PRN ×2 (18:30→19:30)
[2021-10-01] MEDS ORDERED: PROMETHAZINE HCL 25 MG/ML 1ML AMPULE IM PRN (18:30)
[2021-10-01] MEDS ORDERED: FERROUS FUMARATE 324 MG TABLET PO PRN ×2 (18:30→19:30)
[2021-10-01] MEDS ORDERED: DIPHENHYDRAMINE HCL 25 MG CAPSULE PO PRN ×2 (18:30→19:30)
[2021-10-01] MEDS ORDERED: TEMAZEPAM 15 MG CAPSULE PO PRN ×2 (18:30→19:30)
[2021-10-01] MEDS ORDERED: 0.9%NACL 1000ML 1,000 ML IV SCH (18:30)
[2021-10-01] MEDS ORDERED: NEOSTIGMINE 5MG/5ML SYR IV ONE (18:45)
[2021-10-01] MEDS ORDERED: MEPERIDINE-PF 25 MG/ML SYG ONE ×2 (18:47→19:13)
[2021-10-01 18:55] LABS: BF LYMPHOCYTE 3 %; BF MONOCYTE 1 %
[2021-10-01] MEDS ORDERED: KETOROLAC 30MG VIAL (30MG/ML) ONE (18:57)
[2021-10-01] MEDS ORDERED: BISACODYL 10 MG SUPP.RECT RC PRN (19:30)
[2021-10-01] MEDS ORDERED: BISACODYL 5 MG TABLET.DR PO PRN (19:30)
[2021-10-01] MEDS: 0.9%NACL 1000ML 1,000 ML IV SCH (20:34)
[2021-10-01] MEDS: PREGABALIN 25 MG CAP PO SCH (20:35)
[2021-10-01] MEDS: ACETAMINOPHEN 500 MG TABLET PO SCH (20:53)
[2021-10-01] MEDS ORDERED: FAMOTIDINE 20MG TAB PO SCH (21:00)
[2021-10-01] MEDS ORDERED: PREGABALIN 25 MG CAP PO SCH (21:00)
[2021-10-02] VITALS (8 sets, daily range): BP systolic 90–111; BP diastolic 42–72
[2021-10-02] MEDS: KETOROLAC 15MG/ML VIAL (15MG/ML) IV PRN (02:28)
[2021-10-02 05:18] LABS: HEMATOCRIT 31.6 % (42-54); MEAN CORPUSCULAR HEMOGLOBIN 23.9 pg (27.0-33.0); MEAN CORPUSCULAR HGB CONC 29.1 g/dL (32.0-36.0); MEAN CORPUSCULAR VOLUME 82.1 fL (79-99); RED BLOOD CELL COUNT(AUTO) 3.85 MIL/uL (4.50-6.20); RED CELL DISTRIBUTION WIDTH 17.8 % (11.0-15.5); WHITE BLOOD COUNT (AUTO) 8.3 K/uL (4.8-10.8)
[2021-10-02] MEDS ORDERED: 0.9% NACL 250ML 250 ML ONE ×3 (05:27→21:11)
[2021-10-02 05:32] LABS: CREATININE 0.8 mg/dL (0.5-1.5); POTASSIUM 4.8 mmol/L (3.5-5.1)
[2021-10-02] MEDS: VANCOMYCIN 1G/250ML KIT 250 ML IV SCH ×2 (05:54→16:51)
[2021-10-02] MEDS: ACETAMINOPHEN 500 MG TABLET PO SCH ×3 (05:55→23:15)
[2021-10-02] MEDS: 0.9%NACL 1000ML 1,000 ML IV SCH ×2 (06:11→15:30)
[2021-10-02] MEDS: AMLODIPINE 5 MG TAB PO SCH ×2 (08:28→20:58)
[2021-10-02] MEDS: TAMSULOSIN HCL 0.4 MG CAP.ER.24H PO SCH (08:28)
[2021-10-02] MEDS: POLYETHYLENE GLYCOL 3350 17 GM POWD.PACK PO SCH (08:28)
[2021-10-02] MEDS: FAMOTIDINE 20MG TAB PO SCH ×2 (08:28→20:59)
[2021-10-02] MEDS: METOPROLOL TARTRATE 50 MG TAB PO SCH ×2 (08:28→20:58)
[2021-10-02] MEDS: PREGABALIN 25 MG CAP PO SCH ×2 (08:29→20:58)
[2021-10-02] MEDS: ENOXAPARIN SODIUM 40 MG/0.4 ML SYRINGE SQ SCH (08:34)
[2021-10-02] MEDS ORDERED: TAMSULOSIN HCL 0.4 MG CAP.ER.24H PO SCH (09:00)
[2021-10-02] MEDS ORDERED: ENOXAPARIN SODIUM 40 MG/0.4 ML SYRINGE SQ SCH (09:00)
[2021-10-02] MEDS ORDERED: POLYETHYLENE GLYCOL 3350 17 GM POWD.PACK PO SCH (09:00)
[2021-10-02] MEDS ORDERED: PSYLLIUM SEED 1 EACH PACKET PO SCH (12:00)
[2021-10-02] MEDS: PSYLLIUM SEED 1 EACH PACKET PO SCH (12:06)
[2021-10-02] MEDS: OXYCODONE HCL 5 MG TAB PO PRN (17:56)
[2021-10-03 04:03] VITALS: BP 102/45
[2021-10-03 04:38] LABS: HEMATOCRIT 26.6 % (42-54); MEAN CORPUSCULAR HEMOGLOBIN 24.1 pg (27.0-33.0); MEAN CORPUSCULAR HGB CONC 29.3 g/dL (32.0-36.0); MEAN CORPUSCULAR VOLUME 82.4 fL (79-99); RED BLOOD CELL COUNT(AUTO) 3.23 MIL/uL (4.50-6.20); WHITE BLOOD COUNT (AUTO) 7.8 K/uL (4.8-10.8)
[2021-10-03 04:55] LABS: CREATININE 0.8 mg/dL (0.5-1.5); POTASSIUM 4.6 mmol/L (3.5-5.1)
[2021-10-03] MEDS: ACETAMINOPHEN 500 MG TABLET PO SCH ×3 (06:12→21:36)
[2021-10-03 07:30] VITALS: BP 114/38
[2021-10-03] MEDS ORDERED: 0.9% NACL 250ML 250 ML ONE ×3 (08:35→21:32)
[2021-10-03] MEDS: VANCOMYCIN 1G/250ML KIT 250 ML IV SCH ×4 (08:37→21:37)
[2021-10-03] MEDS: METOPROLOL TARTRATE 50 MG TAB PO SCH ×2 (08:38→21:37)
[2021-10-03] MEDS: TAMSULOSIN HCL 0.4 MG CAP.ER.24H PO SCH (08:38)
[2021-10-03] MEDS: FAMOTIDINE 20MG TAB PO SCH ×2 (08:39→21:35)
[2021-10-03] MEDS: POLYETHYLENE GLYCOL 3350 17 GM POWD.PACK PO SCH (08:39)
[2021-10-03] MEDS: ENOXAPARIN SODIUM 40 MG/0.4 ML SYRINGE SQ SCH (08:39)
[2021-10-03] MEDS: PREGABALIN 25 MG CAP PO SCH ×2 (08:39→21:35)
[2021-10-03] MEDS: AMLODIPINE 5 MG TAB PO SCH ×2 (08:39→21:36)
[2021-10-03 11:25] VITALS: BP 106/46
[2021-10-03] MEDS: PSYLLIUM SEED 1 EACH PACKET PO SCH (12:17)
[2021-10-03 15:35] VITALS: BP 105/57
[2021-10-03] MEDS ORDERED: BISACODYL 5 MG TABLET.DR PO PRN (18:30)
[2021-10-03 20:08] VITALS: BP 123/61
[2021-10-03] MEDS: KETOROLAC 15MG/ML VIAL (15MG/ML) IV PRN (21:41)
[2021-10-03] MEDS: GUAIFENESIN-DM 200/20 MG 10 ML PO PRN (21:57)
[2021-10-03 23:52] VITALS: BP 113/63
[2021-10-04] MEDS: ACETAMINOPHEN 500 MG TABLET PO SCH ×2 (03:30→11:00)
[2021-10-04 03:51] VITALS: BP 95/48
[2021-10-04] MEDS ORDERED: 0.9% NACL 250ML 250 ML ONE ×3 (05:18→20:47)
[2021-10-04 05:19] LABS: HEMATOCRIT 26.3 % (42-54); MEAN CORPUSCULAR HEMOGLOBIN 23.8 pg (27.0-33.0); MEAN CORPUSCULAR HGB CONC 29.3 g/dL (32.0-36.0); MEAN CORPUSCULAR VOLUME 81.4 fL (79-99); RED BLOOD CELL COUNT(AUTO) 3.23 MIL/uL (4.50-6.20); RED CELL DISTRIBUTION WIDTH 17.7 % (11.0-15.5); WHITE BLOOD COUNT (AUTO) 5.7 K/uL (4.8-10.8)
[2021-10-04 05:35] LABS: CREATININE 0.7 mg/dL (0.5-1.5); POTASSIUM 4.3 mmol/L (3.5-5.1)
[2021-10-04] MEDS: KETOROLAC 15MG/ML VIAL (15MG/ML) IV PRN ×2 (05:46→21:02)
[2021-10-04] MEDS: VANCOMYCIN 1G/250ML KIT 250 ML IV SCH ×3 (05:47→21:03)
[2021-10-04 08:00] VITALS: BP 127/66
[2021-10-04] MEDS: PREGABALIN 25 MG CAP PO SCH ×2 (08:15→21:03)
[2021-10-04] MEDS: TAMSULOSIN HCL 0.4 MG CAP.ER.24H PO SCH (08:15)
[2021-10-04] MEDS: METOPROLOL TARTRATE 50 MG TAB PO SCH ×2 (08:15→21:03)
[2021-10-04] MEDS: FAMOTIDINE 20MG TAB PO SCH ×2 (08:16→21:03)
[2021-10-04] MEDS: POLYETHYLENE GLYCOL 3350 17 GM POWD.PACK PO SCH (08:16)
[2021-10-04] MEDS: AMLODIPINE 5 MG TAB PO SCH ×2 (08:16→21:03)
[2021-10-04] MEDS: ENOXAPARIN SODIUM 40 MG/0.4 ML SYRINGE SQ SCH (08:17)
[2021-10-04] MEDS: GUAIFENESIN-DM 200/20 MG 10 ML PO PRN ×2 (10:58→16:37)
[2021-10-04] MEDS: PSYLLIUM SEED 1 EACH PACKET PO SCH (11:34)
[2021-10-04 12:00] VITALS: BP 135/59
[2021-10-04 16:00] VITALS: BP 120/73
[2021-10-04] MEDS ORDERED: BISACODYL 10 MG SUPP.RECT RC PRN (18:30)
[2021-10-04 20:11] VITALS: BP 130/69
[2021-10-04 23:27] VITALS: BP 102/42
[2021-10-05] MEDS: GUAIFENESIN-DM 200/20 MG 10 ML PO PRN ×3 (00:29→21:29)
[2021-10-05 03:43] VITALS: BP 127/68
[2021-10-05] MEDS: ACETAMINOPHEN 500 MG TABLET PO SCH ×3 (03:51→18:55)
[2021-10-05 05:35] LABS: MEAN CORPUSCULAR HGB CONC 30.4 g/dL (32.0-36.0); PLATELET COUNT (AUTO) 249 K/uL (130-400); RED BLOOD CELL COUNT(AUTO) 3.29 MIL/uL (4.50-6.20); RED CELL DISTRIBUTION WIDTH 17.5 % (11.0-15.5); WHITE BLOOD COUNT (AUTO) 6.1 K/uL (4.8-10.8)
[2021-10-05 05:47] LABS: CREATININE 0.6 mg/dL (0.5-1.5); POTASSIUM 4.3 mmol/L (3.5-5.1)
[2021-10-05] MEDS ORDERED: 0.9% NACL 250ML 250 ML ONE ×3 (06:32→21:16)
[2021-10-05] MEDS: VANCOMYCIN 1G/250ML KIT 250 ML IV SCH ×3 (06:35→22:41)
[2021-10-05 07:30] VITALS: BP 137/63
[2021-10-05] MEDS: TAMSULOSIN HCL 0.4 MG CAP.ER.24H PO SCH (08:55)
[2021-10-05] MEDS: METOPROLOL TARTRATE 50 MG TAB PO SCH ×2 (08:55→21:28)
[2021-10-05] MEDS: PREGABALIN 25 MG CAP PO SCH ×2 (08:55→21:27)
[2021-10-05] MEDS: AMLODIPINE 5 MG TAB PO SCH ×2 (08:56→21:27)
[2021-10-05] MEDS: POLYETHYLENE GLYCOL 3350 17 GM POWD.PACK PO SCH (08:56)
[2021-10-05] MEDS: FAMOTIDINE 20MG TAB PO SCH ×2 (08:56→21:28)
[2021-10-05] MEDS: ENOXAPARIN SODIUM 40 MG/0.4 ML SYRINGE SQ SCH (08:56)
[2021-10-05 11:30] VITALS: BP 111/57
[2021-10-05] MEDS: PSYLLIUM SEED 1 EACH PACKET PO SCH (11:41)
[2021-10-05] MEDS: OXYCODONE HCL 5 MG TAB PO PRN (12:42)
[2021-10-05] MEDS: BENZONATATE 100 MG CAPSULE PO PRN (14:10)
[2021-10-05 16:00] VITALS: BP 120/62
[2021-10-05 20:10] VITALS: BP 142/74
[2021-10-05 23:29] VITALS: BP 121/68
[2021-10-06] MEDS: ACETAMINOPHEN 500 MG TABLET PO SCH ×3 (02:50→19:30)
[2021-10-06 04:00] VITALS: BP 134/69
[2021-10-06 04:47] LABS: HEMATOCRIT 29.5 % (42-54); MEAN CORPUSCULAR HEMOGLOBIN 24.7 pg (27.0-33.0); MEAN CORPUSCULAR HGB CONC 31.2 g/dL (32.0-36.0); MEAN CORPUSCULAR VOLUME 79.3 fL (79-99); RED BLOOD CELL COUNT(AUTO) 3.72 MIL/uL (4.50-6.20); RED CELL DISTRIBUTION WIDTH 17.7 % (11.0-15.5); WHITE BLOOD COUNT (AUTO) 5.2 K/uL (4.8-10.8)
[2021-10-06 04:59] LABS: CREATININE 0.7 mg/dL (0.5-1.5); POTASSIUM 4.4 mmol/L (3.5-5.1)
[2021-10-06] MEDS ORDERED: 0.9% NACL 250ML 250 ML ONE ×3 (05:47→22:38)
[2021-10-06] MEDS: VANCOMYCIN 1G/250ML KIT 250 ML IV SCH ×3 (05:54→22:41)
[2021-10-06 07:30] VITALS: BP 136/72
[2021-10-06] MEDS: ENOXAPARIN SODIUM 40 MG/0.4 ML SYRINGE SQ SCH (09:40)
[2021-10-06] MEDS: AMLODIPINE 5 MG TAB PO SCH ×2 (09:41→20:19)
[2021-10-06] MEDS: TAMSULOSIN HCL 0.4 MG CAP.ER.24H PO SCH (09:41)
[2021-10-06] MEDS: POLYETHYLENE GLYCOL 3350 17 GM POWD.PACK PO SCH (09:41)
[2021-10-06] MEDS: PREGABALIN 25 MG CAP PO SCH ×2 (09:41→20:19)
[2021-10-06] MEDS: METOPROLOL TARTRATE 50 MG TAB PO SCH ×2 (09:41→20:19)
[2021-10-06] MEDS: FAMOTIDINE 20MG TAB PO SCH ×2 (09:41→20:19)
[2021-10-06] MEDS: BENZONATATE 100 MG CAPSULE PO PRN (10:02)
[2021-10-06] MEDS: OXYCODONE HCL 5 MG TAB PO PRN ×2 (10:03→20:20)
[2021-10-06 11:00] VITALS: BP 130/64
[2021-10-06] MEDS: PSYLLIUM SEED 1 EACH PACKET PO SCH (13:00)
[2021-10-06 13:46] LABS: INR 1.09 (0.85-1.15); PROTHROMBIN TIME 11.2 SEC (9.6-11.6)
[2021-10-06 16:00] VITALS: BP 97/47
[2021-10-06 20:00] VITALS: BP 136/70
[2021-10-07] VITALS (7 sets, daily range): BP systolic 112–152; BP diastolic 59–82
[2021-10-07] MEDS: ACETAMINOPHEN 500 MG TABLET PO SCH ×3 (03:30→18:16)
[2021-10-07 04:49] LABS: HEMATOCRIT 30.5 % (42-54); MEAN CORPUSCULAR HEMOGLOBIN 23.7 pg (27.0-33.0); MEAN CORPUSCULAR HGB CONC 30.2 g/dL (32.0-36.0); MEAN CORPUSCULAR VOLUME 78.6 fL (79-99); RED BLOOD CELL COUNT(AUTO) 3.88 MIL/uL (4.50-6.20); WHITE BLOOD COUNT (AUTO) 5.7 K/uL (4.8-10.8)
[2021-10-07 05:25] LABS: CREATININE 0.7 mg/dL (0.5-1.5); POTASSIUM 4.1 mmol/L (3.5-5.1)
[2021-10-07] MEDS ORDERED: 0.9% NACL 250ML 250 ML ONE ×3 (06:46→21:49)
[2021-10-07] MEDS: VANCOMYCIN 1G/250ML KIT 250 ML IV SCH ×3 (06:47→21:51)
[2021-10-07] MEDS: FAMOTIDINE 20MG TAB PO SCH ×2 (09:32→21:01)
[2021-10-07] MEDS: TAMSULOSIN HCL 0.4 MG CAP.ER.24H PO SCH (09:32)
[2021-10-07] MEDS: AMLODIPINE 5 MG TAB PO SCH ×2 (09:32→21:02)
[2021-10-07] MEDS: METOPROLOL TARTRATE 50 MG TAB PO SCH ×2 (09:33→21:02)
[2021-10-07] MEDS: PREGABALIN 25 MG CAP PO SCH ×2 (09:33→21:01)
[2021-10-07] MEDS: ENOXAPARIN SODIUM 40 MG/0.4 ML SYRINGE SQ SCH (09:33)
[2021-10-07] MEDS: POLYETHYLENE GLYCOL 3350 17 GM POWD.PACK PO SCH (09:33)
[2021-10-07] MEDS: ACETAMINOPHEN 325 MG TAB PO PRN ×2 (11:55→18:16)
[2021-10-07] MEDS: PSYLLIUM SEED 1 EACH PACKET PO SCH (14:35)
[2021-10-07] MEDS ORDERED: OXYCODONE HCL 20 MG/ML ORAL.CONC 0.25ML PO SCH (19:00)
[2021-10-07] MEDS ORDERED: PHARMACY COMMUNICATION MISC SCH (19:30)
[2021-10-07] MEDS: OXYCODONE HCL 5 MG TAB PO PRN (21:52)
[2021-10-08] VITALS (31 sets, daily range): BP systolic 102–162; BP diastolic 53–93
[2021-10-08] MEDS: ACETAMINOPHEN 325 MG TAB PO PRN (00:04)
[2021-10-08] MEDS: OXYCODONE HCL 5 MG TAB PO PRN ×2 (01:52→08:22)
[2021-10-08] MEDS: ACETAMINOPHEN 500 MG TABLET PO SCH ×3 (03:18→18:00)
[2021-10-08 05:03] LABS: BASOPHILS % (AUTO) 0.5 % (0.0-5.0); EOSINOPHILS % (AUTO) 7.2 % (0.0-8.0); LYMPHOCYTES % (AUTO) 14.7 % (21.0-51.0); MEAN CORPUSCULAR HEMOGLOBIN 24.3 pg (27.0-33.0); MEAN CORPUSCULAR HGB CONC 30.7 g/dL (32.0-36.0); MEAN CORPUSCULAR VOLUME 79.4 fL (79-99); MONOCYTES % (AUTO) 9.7 % (3.0-13.0); NEUTROPHILS % (AUTO) 66.8 % (40.0-77.0); PLATELET COUNT (AUTO) 280 K/uL (130-400); RED BLOOD CELL COUNT(AUTO) 3.78 MIL/uL (4.50-6.20); WHITE BLOOD COUNT (AUTO) 5.6 K/uL (4.8-10.8)
[2021-10-08 05:38] LABS: ALBUMIN 2.5 g/dL (3.5-5.0); BILIRUBIN,TOTAL 0.2 mg/dL (0.2-1.0); CREATININE 0.7 mg/dL (0.5-1.5); MAGNESIUM 2.1 mg/dL (1.80-2.40); POTASSIUM 4.2 mmol/L (3.5-5.1); TOTAL PROTEIN, SERUM 8.4 g/dL (6.0-8.3)
[2021-10-08] MEDS: VANCOMYCIN 1G/250ML KIT 250 ML IV SCH (05:47)
[2021-10-08] MEDS: ENOXAPARIN SODIUM 40 MG/0.4 ML SYRINGE SQ SCH (08:19)
[2021-10-08] MEDS: AMLODIPINE 5 MG TAB PO SCH ×2 (08:19→21:39)
[2021-10-08] MEDS: METOPROLOL TARTRATE 50 MG TAB PO SCH ×2 (08:19→21:39)
[2021-10-08] MEDS: POLYETHYLENE GLYCOL 3350 17 GM POWD.PACK PO SCH (08:22)
[2021-10-08] MEDS: TAMSULOSIN HCL 0.4 MG CAP.ER.24H PO SCH (08:22)
[2021-10-08] MEDS: FAMOTIDINE 20MG TAB PO SCH ×2 (08:22→21:39)
[2021-10-08] MEDS: PREGABALIN 25 MG CAP PO SCH ×2 (08:23→21:39)
[2021-10-08] MEDS ORDERED: VANCOMYCIN 1G VIAL ONE (11:56)
[2021-10-08] MEDS: PSYLLIUM SEED 1 EACH PACKET PO SCH (12:00)
[2021-10-08] MEDS ORDERED: 0.9% NACL 250ML 250 ML ONE (12:40)
[2021-10-08] MEDS ORDERED: LACTATED RINGERS 1000ML 1,000 ML IV ONE (12:51)
[2021-10-08] MEDS ORDERED: HYDROMORPHONE 1 MG INJ ONE (13:49)
[2021-10-08] MEDS ORDERED: FAMOTIDINE 20MG VIAL IV ONE (13:49)
[2021-10-08] MEDS ORDERED: MIDAZOLAM HCL 1 MG/ML 2ML VIAL ONE (13:49)
[2021-10-08] MEDS ORDERED: GLYCOPYRROLATE 1 MG/5 ML SYRINGE ONE ×2 (13:52→18:15)
[2021-10-08] MEDS ORDERED: FENTANYL CITRATE PF 50 MCG/1 ML 5ML AMP IV ONE (13:52)
[2021-10-08] MEDS ORDERED: LIDOCAINE PF 100MG/5ML (2%) SYRINGE 5ML ONE (13:52)
[2021-10-08] MEDS ORDERED: ROCURONIUM 10MG/1ML SYR 10 MG/ML ML ONE (13:52)
[2021-10-08] MEDS ORDERED: PROPOFOL 10 MG/ML 20ML VIAL IV ONE (13:52)
[2021-10-08] MEDS: VANCOMYCIN 1G VIAL TP SCH ×2 (14:30→16:00)
[2021-10-08] MEDS ORDERED: CEFAZOLIN SODIUM 1 GM VIAL ONE (14:32)
[2021-10-08] MEDS: CEFAZOLIN SODIUM 1 GM VIAL ONE ×2 (14:40→15:00)
[2021-10-08] MEDS ORDERED: ONDANSETRON 4MG INJ ONE (14:44)
[2021-10-08] MEDS ORDERED: EPHEDRINE SULFATE 50 MG/ML AMPULE ONE (14:49)
[2021-10-08] MEDS ORDERED: POTASSIUM CHLORIDE 20MEQ/100ML 100 ML IV PRN (18:00)
[2021-10-08] MEDS ORDERED: DIPHENHYDRAMINE HCL 25 MG CAPSULE PO PRN (18:00)
[2021-10-08] MEDS ORDERED: KCL 20 MEQ ERTAB PO PRN (18:00)
[2021-10-08] MEDS ORDERED: POTASSIUM CHLORIDE 10% ELIXIR 20 MEQ/15 ML UDCUP PO PRN (18:00)
[2021-10-08] MEDS ORDERED: FERROUS FUMARATE 324 MG TABLET PO PRN (18:00)
[2021-10-08] MEDS ORDERED: DiphenhydrAMINE HCL 50 MG/ML VIAL IVP PRN (18:00)
[2021-10-08] MEDS ORDERED: 0.9% NACL 250ML 250 ML IV SCH (18:00)
[2021-10-08] MEDS ORDERED: LIDOCAINE HCL-MPF 1% 2ML VIAL IV PRN (18:00)
[2021-10-08] MEDS ORDERED: TEMAZEPAM 15 MG CAPSULE PO PRN (18:00)
[2021-10-08] MEDS ORDERED: 0.9%NACL 1000ML 1,000 ML IV SCH (18:00)
[2021-10-08] MEDS ORDERED: OXYCODONE HCL 5 MG TAB PO PRN (18:00)
[2021-10-08] MEDS ORDERED: TRAMADOL HCL 50 MG TABLET PO PRN (18:00)
[2021-10-08] MEDS ORDERED: CALCIUM CARB 500MG PO PRN (18:00)
[2021-10-08] MEDS ORDERED: DEXAMETHASONE SOD PHOSPHATE 10MG/ML 1ML VIAL ONE (18:04)
[2021-10-08] MEDS ORDERED: NEOSTIGMINE 5MG/5ML SYR IV ONE (18:15)
[2021-10-08] MEDS ORDERED: MEPERIDINE-PF 25 MG/ML SYG ONE ×2 (18:58→19:15)
[2021-10-08] MEDS: PROMETHAZINE HCL 25 MG/ML 1ML AMPULE IM PRN ×2 (19:22→19:23)
[2021-10-08] MEDS ORDERED: VANCOMYCIN 1G/250ML KIT 0 ML IV ONE (21:30)
[2021-10-08] MEDS: CELECOXIB 200 MG CAP PO SCH (21:40)
[2021-10-08] MEDS: VANCOMYCIN 750MG VIAL IVPB SCH (22:37)
[2021-10-09 03:17] VITALS: BP 138/77
[2021-10-09] MEDS: VANCOMYCIN 750MG VIAL IVPB SCH ×2 (03:37→10:11)
[2021-10-09] MEDS: ACETAMINOPHEN 500 MG TABLET PO SCH ×2 (03:38→10:13)
[2021-10-09 05:08] LABS: BASOPHILS % (AUTO) 0.1 % (0.0-5.0); HEMATOCRIT 31.5 % (42-54); LYMPHOCYTES % (AUTO) 4.3 % (21.0-51.0); MEAN CORPUSCULAR HEMOGLOBIN 24.5 pg (27.0-33.0); MEAN CORPUSCULAR HGB CONC 30.2 g/dL (32.0-36.0); MEAN CORPUSCULAR VOLUME 81.4 fL (79-99); MONOCYTES % (AUTO) 1.4 % (3.0-13.0); NEUTROPHILS % (AUTO) 93.4 % (40.0-77.0); PLATELET COUNT (AUTO) 329 K/uL (130-400); RED BLOOD CELL COUNT(AUTO) 3.87 MIL/uL (4.50-6.20); RED CELL DISTRIBUTION WIDTH 18.2 % (11.0-15.5); WHITE BLOOD COUNT (AUTO) 8.7 K/uL (4.8-10.8)
[2021-10-09 05:29] LABS: INR 1.1 (0.85-1.15); PROTHROMBIN TIME 11.9 SEC (9.6-11.6)
[2021-10-09 05:30] LABS: PARTIAL THROMBOPLASTIN TIME 22.5 SEC (26.3-35.5)
[2021-10-09 05:36] LABS: ALBUMIN 2.4 g/dL (3.5-5.0); BILIRUBIN,TOTAL 0.3 mg/dL (0.2-1.0); CREATININE 0.8 mg/dL (0.5-1.5); MAGNESIUM 2.3 mg/dL (1.80-2.40); POTASSIUM 5.2 mmol/L (3.5-5.1); TOTAL PROTEIN, SERUM 8.3 g/dL (6.0-8.3)
[2021-10-09 08:00] VITALS: BP 107/58
[2021-10-09] MEDS ORDERED: 0.9% NACL 250ML 250 ML ONE (09:20)
[2021-10-09] MEDS: POLYETHYLENE GLYCOL 3350 17 GM POWD.PACK PO SCH (10:10)
[2021-10-09] MEDS: PREGABALIN 25 MG CAP PO SCH ×2 (10:12→21:18)
[2021-10-09] MEDS: FAMOTIDINE 20MG TAB PO SCH ×2 (10:14→21:18)
[2021-10-09] MEDS: CELECOXIB 200 MG CAP PO SCH ×2 (10:14→21:17)
[2021-10-09] MEDS: AMLODIPINE 5 MG TAB PO SCH ×2 (10:14→21:00)
[2021-10-09] MEDS: METOPROLOL TARTRATE 50 MG TAB PO SCH ×2 (10:14→21:00)
[2021-10-09] MEDS: APIXABAN 2.5 MG TABLET PO SCH ×2 (10:14→21:17)
[2021-10-09 12:00] VITALS: BP 104/54
[2021-10-09] MEDS ORDERED: ACETAMINOPHEN 500 MG TABLET PO PRN (12:00)
[2021-10-09] MEDS: OXYCODONE HCL 5 MG TAB PO PRN (15:45)
[2021-10-09 16:00] VITALS: BP 99/44
[2021-10-09] MEDS: PSYLLIUM SEED 1 EACH PACKET PO SCH (17:10)
[2021-10-09 19:00] VITALS: BP 101/50
[2021-10-09] MEDS: KETOROLAC 15MG/ML VIAL (15MG/ML) IV PRN (21:22)
[2021-10-10] VITALS: BP 94/52
[2021-10-10] MEDS ORDERED: 0.9%NACL 100ML 100 ML ONE ×2 (01:42→17:59)
[2021-10-10] MEDS: VANCOMYCIN 500MG+NS 100ML 100 ML IV SCH ×3 (01:52→18:00)
[2021-10-10 04:00] VITALS: BP 115/62
[2021-10-10 08:00] VITALS: BP 127/68
[2021-10-10] MEDS ORDERED: 0.9% NACL 250ML 250 ML ONE (09:07)
[2021-10-10] MEDS: KETOROLAC 15MG/ML VIAL (15MG/ML) IV PRN (09:17)
[2021-10-10] MEDS: PREGABALIN 25 MG CAP PO SCH ×2 (09:18→20:16)
[2021-10-10] MEDS: APIXABAN 2.5 MG TABLET PO SCH ×2 (09:18→20:16)
[2021-10-10] MEDS: CELECOXIB 200 MG CAP PO SCH ×2 (09:18→20:15)
[2021-10-10] MEDS: POLYETHYLENE GLYCOL 3350 17 GM POWD.PACK PO SCH (09:18)
[2021-10-10] MEDS: AMLODIPINE 5 MG TAB PO SCH ×2 (09:18→20:16)
[2021-10-10] MEDS: METOPROLOL TARTRATE 50 MG TAB PO SCH ×2 (09:18→20:16)
[2021-10-10] MEDS: FAMOTIDINE 20MG TAB PO SCH ×2 (09:18→20:16)
[2021-10-10 12:00] VITALS: BP 116/62
[2021-10-10] MEDS: RIFAMPIN 300 MG CAPSULE PO SCH (13:24)
[2021-10-10] MEDS: PSYLLIUM SEED 1 EACH PACKET PO SCH (13:24)
[2021-10-10 16:00] VITALS: BP 118/59
[2021-10-10] MEDS ORDERED: BISACODYL 5 MG TABLET.DR PO PRN (18:00)
[2021-10-10 19:00] VITALS: BP 121/61
[2021-10-10] MEDS: OXYCODONE HCL 5 MG TAB PO PRN (22:24)
[2021-10-11] VITALS (13 sets, daily range): BP systolic 93–136; BP diastolic 50–86
[2021-10-11] MEDS: RIFAMPIN 300 MG CAPSULE PO SCH ×3 (00:56→23:34)
[2021-10-11] MEDS ORDERED: 0.9%NACL 100ML 100 ML ONE (01:42)
[2021-10-11] MEDS: VANCOMYCIN 500MG+NS 100ML 100 ML IV SCH ×3 (01:44→18:00)
[2021-10-11 05:56] LABS: HEMATOCRIT 29.2 % (42-54); MEAN CORPUSCULAR HEMOGLOBIN 23.5 pg (27.0-33.0); MEAN CORPUSCULAR HGB CONC 28.1 g/dL (32.0-36.0); MEAN CORPUSCULAR VOLUME 83.7 fL (79-99); RED BLOOD CELL COUNT(AUTO) 3.49 MIL/uL (4.50-6.20); RED CELL DISTRIBUTION WIDTH 18.5 % (11.0-15.5); WHITE BLOOD COUNT (AUTO) 5.1 K/uL (4.8-10.8)
[2021-10-11 06:03] LABS: CREATININE 0.6 mg/dL (0.5-1.5); POTASSIUM 4.4 mmol/L (3.5-5.1)
[2021-10-11] MEDS: POLYETHYLENE GLYCOL 3350 17 GM POWD.PACK PO SCH (10:08)
[2021-10-11] MEDS: METOPROLOL TARTRATE 50 MG TAB PO SCH ×2 (10:08→22:01)
[2021-10-11] MEDS: APIXABAN 2.5 MG TABLET PO SCH ×2 (10:09→22:00)
[2021-10-11] MEDS: CELECOXIB 200 MG CAP PO SCH ×2 (10:09→22:00)
[2021-10-11] MEDS: FAMOTIDINE 20MG TAB PO SCH ×2 (10:09→22:01)
[2021-10-11] MEDS: PREGABALIN 25 MG CAP PO SCH ×2 (10:09→22:01)
[2021-10-11] MEDS: AMLODIPINE 5 MG TAB PO SCH ×2 (10:10→22:01)
[2021-10-11] MEDS: PSYLLIUM SEED 1 EACH PACKET PO SCH (12:16)
[2021-10-11] MEDS ORDERED: VANCOMYCIN 1G/250ML KIT 250 ML IV SCH (12:30)
[2021-10-11] MEDS: KETOROLAC 15MG/ML VIAL (15MG/ML) IV PRN ×2 (16:51→23:34)
[2021-10-11] MEDS ORDERED: BISACODYL 10 MG SUPP.RECT RC PRN (18:00)
[2021-10-11] MEDS: VANCOMYCIN 750MG VIAL IVPB SCH (22:01)
[2021-10-11] MEDS: 0.9% NACL 250ML 250 ML IV SCH (22:02)
[2021-10-12] MEDS: OXYCODONE HCL 5 MG TAB PO PRN (03:08)
[2021-10-12 04:14] VITALS: BP 135/64
[2021-10-12] MEDS: VANCOMYCIN 750MG VIAL IVPB SCH ×3 (06:16→21:56)
[2021-10-12] MEDS: 0.9% NACL 250ML 250 ML IV SCH (06:16)
[2021-10-12 08:00] VITALS: BP 138/71
[2021-10-12] MEDS: METOPROLOL TARTRATE 50 MG TAB PO SCH ×2 (09:09→20:27)
[2021-10-12] MEDS: CELECOXIB 200 MG CAP PO SCH ×2 (09:09→20:28)
[2021-10-12] MEDS: APIXABAN 2.5 MG TABLET PO SCH ×2 (09:09→20:28)
[2021-10-12] MEDS: POLYETHYLENE GLYCOL 3350 17 GM POWD.PACK PO SCH (09:09)
[2021-10-12] MEDS: AMLODIPINE 5 MG TAB PO SCH ×2 (09:10→20:28)
[2021-10-12] MEDS: PREGABALIN 25 MG CAP PO SCH ×2 (09:10→20:28)
[2021-10-12] MEDS: FAMOTIDINE 20MG TAB PO SCH ×2 (09:10→20:27)
[2021-10-12] MEDS: PSYLLIUM SEED 1 EACH PACKET PO SCH (11:52)
[2021-10-12] MEDS: RIFAMPIN 300 MG CAPSULE PO SCH (11:52)
[2021-10-12] MEDS: KETOROLAC 15MG/ML VIAL (15MG/ML) IV PRN (11:55)
[2021-10-12 12:00] VITALS: BP 115/62
[2021-10-12 16:00] VITALS: BP 119/47
[2021-10-12 20:00] VITALS: BP 132/60
[2021-10-13] VITALS: BP 124/65
[2021-10-13] MEDS: RIFAMPIN 300 MG CAPSULE PO SCH ×2 (00:24→12:04)
[2021-10-13 02:39] LABS: BASOPHILS % (AUTO) 0.9 % (0.0-5.0); EOSINOPHILS % (AUTO) 10.6 % (0.0-8.0); HEMATOCRIT 29.1 % (42-54); LYMPHOCYTES % (AUTO) 19.9 % (21.0-51.0); MEAN CORPUSCULAR HEMOGLOBIN 23.6 pg (27.0-33.0); MEAN CORPUSCULAR HGB CONC 28.5 g/dL (32.0-36.0); MEAN CORPUSCULAR VOLUME 82.7 fL (79-99); MONOCYTES % (AUTO) 10.6 % (3.0-13.0); NEUTROPHILS % (AUTO) 57.1 % (40.0-77.0); PLATELET COUNT (AUTO) 249 K/uL (130-400); RED BLOOD CELL COUNT(AUTO) 3.52 MIL/uL (4.50-6.20); RED CELL DISTRIBUTION WIDTH 18.5 % (11.0-15.5); WHITE BLOOD COUNT (AUTO) 4.4 K/uL (4.8-10.8)
[2021-10-13 02:59] LABS: ALBUMIN 2.6 g/dL (3.5-5.0); BILIRUBIN,TOTAL 0.3 mg/dL (0.2-1.0); CREATININE 0.6 mg/dL (0.5-1.5); POTASSIUM 4.5 mmol/L (3.5-5.1); TOTAL PROTEIN, SERUM 7.6 g/dL (6.0-8.3)
[2021-10-13 04:00] VITALS: BP 118/53
[2021-10-13] MEDS: VANCOMYCIN 750MG VIAL IVPB SCH ×2 (05:14→14:14)
[2021-10-13 07:30] VITALS: BP 139/71
[2021-10-13] MEDS: APIXABAN 2.5 MG TABLET PO SCH (09:05)
[2021-10-13] MEDS: METOPROLOL TARTRATE 50 MG TAB PO SCH (09:05)
[2021-10-13] MEDS: PREGABALIN 25 MG CAP PO SCH (09:05)
[2021-10-13] MEDS: AMLODIPINE 5 MG TAB PO SCH (09:05)
[2021-10-13] MEDS: CELECOXIB 200 MG CAP PO SCH (09:05)
[2021-10-13] MEDS: POLYETHYLENE GLYCOL 3350 17 GM POWD.PACK PO SCH (09:05)
[2021-10-13] MEDS: FAMOTIDINE 20MG TAB PO SCH (09:05)
[2021-10-13] MEDS: PSYLLIUM SEED 1 EACH PACKET PO SCH (11:29)
[2021-10-13 11:40] VITALS: BP 133/69
[2021-10-13 15:42] VITALS: BP 126/69
== END 2021-10-13 20:20 | DRG 463 ==
LOC: EDH 22:35 → OBSVTOIN 22:36 → EDHIP 22:36 → UNDOADMOB 09-27 03:42 → 3BH 09-28 11:25
PROVIDERS: ADMIT Internal Medicine; ATTEND Internal Medicine
PROC: 3E0T3BZ Introduction of Anesthetic Agent into Peripheral Nerves and Plexi, Percutaneous Approach (ICD-10-PCS; 2021-10-01)
PROC: 0SPC0JZ Removal of Synthetic Substitute from Right Knee Joint, Open Approach (ICD-10-PCS; principal; 2021-10-01 12:49)
PROC: 0SBC0ZZ Excision of Right Knee Joint, Open Approach (ICD-10-PCS; 2021-10-01 12:49)
PROC: 0SHC08Z Insertion of Spacer into Right Knee Joint, Open Approach (ICD-10-PCS; 2021-10-01 12:49)
PROC: 5A09357 Assistance with Respiratory Ventilation, Less than 24 Consecutive Hours, Continuous Positive Airway Pressure (ICD-10-PCS; 2021-10-02)
PROC: 5A09357 Assistance with Respiratory Ventilation, Less than 24 Consecutive Hours, Continuous Positive Airway Pressure (ICD-10-PCS; 2021-10-03)
PROC: 30233N1 Transfusion of Nonautologous Red Blood Cells into Peripheral Vein, Percutaneous Approach (ICD-10-PCS; 2021-10-06)
PROC: 0SHC08Z Insertion of Spacer into Right Knee Joint, Open Approach (ICD-10-PCS; 2021-10-08)
PROC: 3E0T3BZ Introduction of Anesthetic Agent into Peripheral Nerves and Plexi, Percutaneous Approach (ICD-10-PCS; 2021-10-08)
PROC: 0SPC08Z Removal of Spacer from Right Knee Joint, Open Approach (ICD-10-PCS; 2021-10-08 14:57)
PROC: 05HY33Z Insertion of Infusion Device into Upper Vein, Percutaneous Approach (ICD-10-PCS; 2021-10-10)
DX: T84.53XA Infection and inflammatory reaction due to internal right knee prosthesis, initial encounter (principal); E43 Unspecified severe protein-calorie malnutrition; L03.115 Cellulitis of right lower limb; Z68.42 Body mass index [BMI] 45.0-49.9, adult; D62 Acute posthemorrhagic anemia; E87.1 Hypo-osmolality and hyponatremia; Z20.822 Contact with and (suspected) exposure to COVID-19; I10 Essential (primary) hypertension; E78.5 Hyperlipidemia, unspecified; E66.01 Morbid (severe) obesity due to excess calories; E88.09 Other disorders of plasma-protein metabolism, not elsewhere classified; D72.810 Lymphocytopenia; E78.00 Pure hypercholesterolemia, unspecified; Y92.89 Other specified places as the place of occurrence of the external cause; Y83.1 Surgical operation with implant of artificial internal device as the cause of abnormal reaction of the patient, or of later complication, without mention of misadventure at the time of the procedure; B95.62 Methicillin resistant Staphylococcus aureus infection as the cause of diseases classified elsewhere; G47.30 Sleep apnea, unspecified; R53.81 Other malaise
CPT/HCPCS: 36415; 36430; 73562; 73564; 73700; 76870; 80048; 80053; 80202; 82728; 83605; 83735; 83880; 84100; 84145; 84484; 85025; 85027; 85610; 85651; 85730; 86140; 86850; 86900; 86901; 86923; 87040; 87070; 87071; 87076; 87077; 87186; 87205; 87635; 89051; 93971; 94660; 97039; C1713; C1894; G0378; J0330; J0690; J1100; J1170; J1650; J1885; J2001; J2175; J2250; J2370; J2405; J2543; J2704; J2710; J3010; J3370; J3490; J7030; J7050; J7120; P9016